=== PATIENT | female | born 1985 | race Caucasian/White ===

== ENCOUNTER 2018-07-11 11:22 | Outpatient (REF) | payer BC, SELFPAY ==
--- NOTE | 2018-07-11 10:30 | PAPFT_PTH ---
PATIENT: Christina Washington LOC: [facility] U#:[id number] AGE/SX: 32/F ROOM: RE07/11/[address]: Starla Jones : 1985 BED: DIS: 07/11/2018 SPEC #: [id number] RECD: 07/11/18 13:05 STATUS: RUFINA RERitika #: [id number] LYNETTE: 07/11/18 10:[address]: Starla Jones DEPT: [facility] Cytology RECD BY: Josefa Wade Tissues: 1 - CX/ENDOCX FOR PAP SMEARS Procedures: PAP THIN PREP/UVM Screening HPV DNA PROBE Comments: [id number] (CHLAMYDIA/GC)
[2018-07-14 14:53] LABS: Chlamydia Result Negative; GC Result Negative; Specimen Description SEE COMMENTS
== END 2018-07-11 11:42 ==
LOC: NCHCN 11:22
PROVIDERS: PCP Nurse Practitioner; Visit Provider Nurse Practitioner
DX: Z11.3 Encounter for screening for infections with a predominantly sexual mode of transmission (principal); Z12.4 Encounter for screening for malignant neoplasm of cervix; Z11.51 Encounter for screening for human papillomavirus (HPV)
CPT/HCPCS: 87491; 87591; 88142; 87624

== ENCOUNTER 2018-08-07 10:20 | Outpatient (REF) | payer BC, SELFPAY ==
[2018-08-07 13:02] LABS: TSH (W/Ref FT4) 1.29 uIU/mL (0.358-3.74)
== END 2018-08-07 10:40 ==
LOC: NCHCN 10:20
PROVIDERS: PCP Nurse Practitioner; Visit Provider Nurse Practitioner
DX: E03.9 Hypothyroidism, unspecified (principal)
CPT/HCPCS: 84443

== ENCOUNTER 2018-11-26 15:07 | Outpatient (REF) | payer OTHER, SELFPAY ==
[2018-11-26 20:27] LABS: ESR 19 MM/HR (0-20)
[2018-11-26 20:46] LABS: C-Reactive Protein 0.31 mg/dL (0.0-0.3); FREE T4 0.88 ng/dL (0.76-1.46)
[2018-11-27 17:59] LABS: T3, Total 94 ng/dl (97-169)
[2018-11-28 09:18] LABS: Thyroglobulin Antibody 56 U/mL (<61); Thyroperoxidase Antibody >1300 U/mL (<61)
[2018-11-28 13:37] LABS: ANA Interpretation Positive (NEGAT); ANA Titer Pattern SEE COMMENTS
[2018-11-28 16:18] LABS: c-ANCA Negative (Negative); p-ANCA Negative (Negative)
== END 2018-11-26 15:27 ==
LOC: NCHCN 15:07
PROVIDERS: PCP Nurse Practitioner; Visit Provider Physician Assistant Medical
DX: R21 Rash and other nonspecific skin eruption (principal)
CPT/HCPCS: 85652; 86376; 84439; 84443; 84480; 86038; 86140; 86255

== ENCOUNTER 2019-03-02 14:55 | Outpatient (REF) | payer OTHER, SELFPAY ==
[2019-03-02 21:51] LABS: FREE T4 1.03 ng/dL (0.76-1.46); TSH 1.18 uIU/mL (0.358-3.74)
[2019-03-03 18:34] LABS: T3, Total 122 ng/dl (97-169)
== END 2019-03-02 15:15 ==
LOC: NCHCN 14:55
PROVIDERS: PCP Nurse Practitioner; Visit Provider Physician Assistant Medical
DX: E03.9 Hypothyroidism, unspecified (principal)
CPT/HCPCS: 84439; 84443; 84480

== ENCOUNTER 2019-06-06 10:15 | Outpatient (CLI) | payer OTHER, SELFPAY ==
[2019-06-06 10:27] LABS: Abs Immature Grans 0.01 k/cumm (0.0-0.09); Absolute Basophil Count 0.05 k/cumm (0.0-0.2); Absolute Eosinophil Count 0.23 k/cumm (0.0-0.7); Absolute Lymphocyte Count 2.11 k/cumm (1.2-3.4); Absolute Monocyte Count 0.49 k/cumm (0.11-0.7); Absolute Neutrophil Count 4.35 k/cumm (1.2-6.7); Basophils % 0.7; Eosinophils % 3.2; HCT 36.7 % (36.0-46.0); HGB 12.1 g/dL (12.0-15.5); Immature Grans % 0.1; Lymphocytes % 29.1; Mean Corpuscular Hemoglobin 28.3 pg (27.0-33.0); Mean Corpuscular Volume 85.9 fL (80-95); Mean Platelet Volume 10.2 fL (8.0-11.0); Monocytes % 6.8; Neutrophils % 60.1; Platelet Count 283 x1000/uL (130-400); RBC 4.27 m/cumm (4.00-5.20); RBC Distribution Width 12.9 % (11.7-14.6); White Blood Cell Count 7.24 k/cumm (4.4-10.8)
== END 2019-06-06 10:35 ==
PROVIDERS: PCP Physician Assistant Medical; Visit Provider Physician Assistant Medical
DX: N92.0 Excessive and frequent menstruation with regular cycle (principal)
CPT/HCPCS: 36415; 85025

== ENCOUNTER 2019-06-09 09:30 | Outpatient (REF) | payer OTHER, SELFPAY ==
[2019-06-09 21:57] LABS: HCG Qual (Serum) Negative
[2019-06-09 22:04] LABS: FREE T4 0.91 ng/dL (0.76-1.46); Glucose 96 mg/dL (70-100); TSH 3.41 uIU/mL (0.36-3.74)
[2019-06-10 18:32] LABS: T3, Total 136 ng/dl (97-169)
[2019-06-10 18:33] LABS: T3, Total 113 ng/dl (97-169)
== END 2019-06-09 09:50 ==
LOC: NCHCN 09:30
PROVIDERS: PCP Physician Assistant Medical; Visit Provider Physician Assistant Medical
DX: E06.3 Autoimmune thyroiditis (principal); N92.0 Excessive and frequent menstruation with regular cycle; R53.83 Other fatigue; Z68.37 Body mass index [BMI] 37.0-37.9, adult
CPT/HCPCS: 82947; 85652; 84439; 84443; 84480; 84703

== ENCOUNTER 2019-06-10 17:44 | Outpatient (REF) | payer OTHER, SELFPAY ==
[2019-06-10 20:45] LABS: ESR 24 mm/hr (0-20)
== END 2019-06-10 18:04 ==
LOC: NCHCN 17:44
PROVIDERS: PCP Physician Assistant Medical; Visit Provider Physician Assistant Medical
DX: E06.3 Autoimmune thyroiditis (principal); N92.0 Excessive and frequent menstruation with regular cycle
CPT/HCPCS: 85652

== ENCOUNTER 2019-07-09 07:45 | Outpatient (CLI) | payer OTHER, SELFPAY ==
[2019-07-09 08:31] LABS: HCT 34.6 % (36.0-46.0); HGB 11.5 g/dL (12.0-15.5); Mean Corp. HGB Concentration 33.2 g/dL (32.0-36.0); Mean Corpuscular Hemoglobin 28.5 pg (27.0-33.0); Mean Corpuscular Volume 85.6 fL (80-95); Platelet Count 295 x1000/uL (130-400); RBC 4.04 m/cumm (4.00-5.20); RBC Distribution Width 12.8 % (11.7-14.6); White Blood Cell Count 6.98 k/cumm (4.4-10.8)
[2019-07-09 16:56] LABS: ALT 17 U/L (14-59); AST 13 U/L (15-37); Albumin 3.8 g/dL (3.4-5.0); Alkaline Phosphatase 85 U/L (46-116); Anion Gap 5.9 mmol/L (3-11); BUN 15 mg/dL (7-18); Bilirubin, Total 0.4 mg/dL (0.2-1.0); CO2 28.1 mmol/L (21.0-32.0); CREATININE 0.85 mg/dL (0.55-1.02); Calcium 8.4 mg/dL (8.5-10.1); Chloride 104 mmol/L (98-107); Glucose 96 mg/dL (70-100); Potassium 4.2 mmol/L (3.5-5.1); Sodium 138 mmol/L (136-145); Total Protein 7.3 g/dL (6.4-8.2)
== END 2019-07-09 08:05 ==
PROVIDERS: PCP Physician Assistant Medical; Visit Provider Internal Medicine Endocrinology, Diabetes & Metabolism
DX: R53.83 Other fatigue (principal); Z68.37 Body mass index [BMI] 37.0-37.9, adult
CPT/HCPCS: 36415; 80053; 82533; 85027; 86140

== ENCOUNTER 2019-07-09 07:57 | Outpatient (REF) | payer OTHER, SELFPAY ==
[2019-07-13 17:37] LABS: Midnight Cortisol <50 ng/dL (<100)
== END 2019-07-09 08:17 ==
LOC: LBN 07:57
PROVIDERS: PCP Physician Assistant Medical; Visit Provider Internal Medicine Endocrinology, Diabetes & Metabolism
DX: R53.83 Other fatigue (principal)
CPT/HCPCS: 82530

== ENCOUNTER 2019-08-18 01:58 | Outpatient (CLI) | payer OTHER, SELFPAY ==
--- NOTE | 2019-08-18 13:03 | NS.NUTBLAN_ITS ---
DESCRIPTION: Christina Washington presents for nutrition consult for obesity and co- morbidity of Jaren seeing endocrinology, poor sleep and depression/anxiety. She is looking for strategies and meal tips. Her is vegetarian. She has a toddler who is eating finger food whom she is concerned about feeding vegetarian meals. She reports a 10 pound weight gain. Christina brings 3 day diet record indicating flavored coffee in AM, eggs or waffle with syrup for breakfast; meat, vegetables, whole grain chips or soup for lunch. Supper is homemade cheese pizza with vegetables, pasta with chickpea and red sauce and vegetables. Christina describes mornings of not having time for breakfast or having plain instant oatmeal. On those days she snacks on sweets, chocolate, or processed food. She takes can of soup, leftovers or salad for lunch. They have pasta 2x/week including mac and cheese and spaghetti with beans and parmesan; chicken 2 x/week. States she is not generally physically active. INTERVENTION: Discussed struggles with cooking 2 meals for each meal; limited financial resources; fatigue at the end of the day that all get in the way of healthy eating. Discussed planning on the weekend for the week; having food available at work if she doesn't get breakfast. Discussed mindful eating and she admits she is a stress eater at times. Focused on hunger/fullness; source of hunger. Reviewed ways to assess quality of food to evaluate if it is worth eating at that moment. Discussed increased physical activity options. PLAN: She will assess hunger/fullness; read labels for non-food ingredients; plan a couple of meals for the week on the weekend including one crock pot meal. She will look for ways to include a quick walk at lunch; get up every 2 hours and move at work and at home. She will call for further follow up. I will send her recipes if available.
== END 2019-08-18 02:18 ==
PROVIDERS: PCP Physician Assistant Medical; Visit Provider Dietitian, Registered
DX: E66.8 Other obesity (principal); E06.3 Autoimmune thyroiditis; Z71.3 Dietary counseling and surveillance
CPT/HCPCS: 97802

== ENCOUNTER → 2019-12-22 18:36 | Outpatient (REF) | payer OTHER, SELFPAY ==
[2019-12-22 22:01] LABS: HCT 36.1 % (36.0-46.0); HGB 11.9 g/dL (12.0-15.5)
[2019-12-22 22:55] LABS: Anion Gap 9.2 mmol/L (3-11); BUN 13 mg/dL (7-18); CO2 27.8 mmol/L (21.0-32.0); CREATININE 0.78 mg/dL (0.55-1.02); Chloride 105 mmol/L (98-107); Glucose 87 mg/dL (74-106); Magnesium 2.4 mg/dL (1.8-2.4); Sodium 142 mmol/L (136-145); TSH (W/Ref FT4) 11.18 uIU/mL (0.36-3.74); Vitamin B12 399 pg/mL (193-986)
[2019-12-22 23:12] LABS: FREE T4 0.68 ng/dL (0.76-1.46)
== END ==
LOC: NCHCN 18:36
PROVIDERS: PCP Physician Assistant Medical; Visit Provider Nurse Practitioner Family
DX: E06.3 Autoimmune thyroiditis (principal); Z86.2 Personal history of diseases of the blood and blood-forming organs and certain disorders involving the immune mechanism; R20.9 Unspecified disturbances of skin sensation; R53.83 Other fatigue; R52 Pain, unspecified
CPT/HCPCS: 80048; 82607; 83735; 84439; 84443; 85014; 85018

== ENCOUNTER 2020-02-09 14:32 | Outpatient (REF) | payer OTHER, SELFPAY ==
[2020-02-09 19:52] LABS: FREE T4 1.13 ng/dL (0.76-1.46); TSH (W/Ref FT4) 0.96 uIU/mL (0.36-3.74)
== END 2020-02-09 14:52 ==
LOC: NCHCN 14:32
PROVIDERS: PCP Physician Assistant Medical; Visit Provider Nurse Practitioner Family
DX: E03.9 Hypothyroidism, unspecified (principal)
CPT/HCPCS: 84439; 84443

== ENCOUNTER 2020-05-04 07:22 | Outpatient (REF) | payer OTHER, SELFPAY ==
[2020-05-04 21:26] LABS: Calculated LDL 91 mg/dL (<100); Cholesterol 159 mg/dL (<200); Glucose 90 mg/dL (74-106); HDL Cholesterol 49 mg/dL (40-60); Triglyceride 96 mg/dL (<150)
== END 2020-05-04 07:42 ==
LOC: NCHCN 07:22
PROVIDERS: PCP Physician Assistant Medical; Visit Provider Nurse Practitioner Family
DX: Z00.00 Encounter for general adult medical examination without abnormal findings (principal)
CPT/HCPCS: 80061; 82947

== ENCOUNTER 2020-05-04 14:10 | Outpatient (CLI) | payer OTHER, SELFPAY ==
--- NOTE | 2020-05-27 08:39 | ZIOP_ITS ---
Date of service: 05/27/20 Time of Service: 08:39 ZIO Patch Manager Of Regulatory Affairs Referring Provider:: Ban Indications:: Palpitations Note: This is a 2-week ZIO patch ordered for indication of palpitations. ?Patient was in normal sinus rhythm for the majority of the recording with an average heart rate of 76 bpm. ?There was one episode of NSVT which lasted 5 beats. ?There were no episodes of supraventricular tachycardia, no pauses greater than 3 seconds, no episodes of atrial fibrillation and no evidence of high degree heart block. ?There were rare isolated supraventricular and ventricular ectopic beats. ?Patient triggered events were associated with sinus rhythm, ectopic beats in the 1 episode of NSVT
== END 2020-05-04 14:30 ==
PROVIDERS: PCP Physician Assistant Medical; Visit Provider Nurse Practitioner Family
DX: R00.2 Palpitations (principal); I47.1 Supraventricular tachycardia

== ENCOUNTER 2020-07-12 08:01 | Outpatient (REF) | payer OTHER, SELFPAY ==
[2020-07-12 20:32] LABS: Iron 39 ug/dL (50-170); Total Iron Binding Capacity 317 ug/dL (250-450); Transferrin Sat 12 % (15-50)
[2020-07-12 20:48] LABS: Ferritin 17 ng/mL (8-252)
[2020-07-14 04:55] LABS: Vitamin D 25 Total 20.2 ng/ml (30-100)
== END 2020-07-12 08:21 ==
LOC: NCHCN 08:01
PROVIDERS: PCP Nurse Practitioner Family; Visit Provider Nurse Practitioner Family
DX: E55.9 Vitamin D deficiency, unspecified (principal); Z86.2 Personal history of diseases of the blood and blood-forming organs and certain disorders involving the immune mechanism
CPT/HCPCS: 82306; 82728; 83540; 83550

== ENCOUNTER 2020-08-29 14:47 | Outpatient (REF) | payer SELFPAY ==
[2020-09-01 08:59] LABS: SARS-CoV-2 RNA Source Nasal/Nares
[2020-09-01 09:00] LABS: SARS-CoV-2 RNA Not Detected (NotDetected)
== END 2020-08-29 15:07 ==
LOC: NCHCN 14:47
PROVIDERS: PCP Nurse Practitioner Family; Visit Provider Nurse Practitioner Family
DX: Z11.59 Encounter for screening for other viral diseases (principal)
CPT/HCPCS: U0003

== ENCOUNTER → 2020-10-19 17:41 | Outpatient (REF) | payer OTHER, SELFPAY ==
[2020-10-19 16:55] LABS: HCT 37.2 % (36.0-46.0); HGB 12.1 g/dL (11.2-15.7); MCH 28.5 pg (27.0-33.0); MCHC 32.5 % (32.0-36.0); MCV 87.5 fL (80-95); MPV 11.5 fL (8.0-11.0); Platelet Count 288 10^3/uL (130-400); RBC 4.25 10^6/uL (3.93-5.22); RDW 13.1 % (11.7-14.6); RDW-SD 41.3 fL; WBC 8.05 10^3/uL (4.4-10.8)
[2020-10-19 17:17] LABS: Ferritin 22 ng/mL (8-252); TSH 5.95 uIU/mL (0.36-3.74)
[2020-10-19 17:44] LABS: FREE T4 0.95 ng/dL (0.76-1.46)
[2020-10-19 19:34] LABS: Iron 46 ug/dL (50-170); Total Iron Binding Capacity 336 ug/dL (250-450); Transferrin Sat 14 % (15-50)
[2020-10-19 21:36] LABS: T3,Free 2.8 pg/mL (2.8-5.3)
[2020-10-19 22:03] LABS: Thyroglobulin Antibody 91 U/mL (<=60)
[2020-10-20 05:06] LABS: Vitamin D 25 Total 21.9 ng/ml (30-100)
== END ==
LOC: NCHCN 17:41
PROVIDERS: PCP Nurse Practitioner Family; Visit Provider Nurse Practitioner Family
DX: E61.1 Iron deficiency (principal); E03.9 Hypothyroidism, unspecified; E55.9 Vitamin D deficiency, unspecified
CPT/HCPCS: 82306; 85027; 82728; 83540; 83550; 84439; 84443; 84481; 86800

== ENCOUNTER 2020-12-12 04:28 | Outpatient (CLI) | payer OTHER, SELFPAY ==
[2020-12-12 09:32] LABS: Calcium 8.8 mg/dL (8.5-10.1); FREE T4 0.39 ng/dL (0.76-1.46); TSH 42.07 uIU/mL (0.36-3.74)
[2020-12-12 16:11] LABS: T3,Free 3.9 pg/mL (2.8-5.3)
[2020-12-12 16:28] LABS: T3, Total 154 ng/dL (97-169)
== END 2020-12-12 04:29 | disposition home or self-care (01) ==
LOC: LBO 04:28
PROVIDERS: PCP Nurse Practitioner Family; Visit Provider Internal Medicine Endocrinology, Diabetes & Metabolism
DX: E03.9 Hypothyroidism, unspecified (principal); E83.51 Hypocalcemia
CPT/HCPCS: 36415; 82310; 84100; 84439; 84443; 84480; 84481; 86376

== ENCOUNTER 2021-02-10 01:34 | Outpatient (CLI) | payer OTHER, SELFPAY ==
--- NOTE | 2021-02-10 14:00 | NS.NUTBLAN_ITS ---
Christina was referred for Medical Nutrition Therapy for weight management. 4' 191 lbs BMI 39. Christina reports 10 lbs wieght gain in last year, up 70 lbs in last 10 years. PMH: Jaren's Dx, anxiety, depression. She sees an presser automatic at [facility]. She reports struggling with her weight since her daughter was born 4 years ago. Her is a vegan, she is an omnivore but tends to eat mostly vegetarian but will on occasion include chicken, milk, cheese, and eggs. Diet recall indicates erratic meal times with poor intakes of protein and reliance on high carbohydrate foods such as pizza, chips and waffles. She also reports binge eating on cakes/sweets when available. Family typically does not have junk foods in home. Christina walks on treadmill in evening for about 10 minutes. She reports good sleep. She reports IBS with constipation. Labs indicate anemia, prescribed iron, MVI and B12- takes on most days. Intervention: Educated Christina on how to follow lower carb, higher protein diet with emphasis on vegetarian and non vegetarian sources of protein. Encouraged eating at regular meal times and limiting carb intake at dinner. Provided meal plans and written material. Suspect increased weight due to high intakes of simple carbs without adequate exercise. Encouraged walking 20 minutes during lunch hour during work week and increased activity during weekend. Follow up meeting scheduled for 03/10/21 at 3 pm
== END 2021-02-10 01:35 | disposition home or self-care (01) ==
LOC: DS 01:34
PROVIDERS: PCP Nurse Practitioner Family; Visit Provider Dietitian, Registered
DX: E66.8 Other obesity (principal); E06.3 Autoimmune thyroiditis; Z68.39 Body mass index [BMI] 39.0-39.9, adult; Z71.3 Dietary counseling and surveillance
CPT/HCPCS: 97802

== ENCOUNTER 2021-03-07 16:55 | Outpatient (REF) | payer OTHER, SELFPAY ==
[2021-03-07 20:45] LABS: Iron 53 ug/dL (50-170); Total Iron Binding Capacity 321 ug/dL (250-450); Transferrin Sat 17 % (15-50)
[2021-03-07 20:54] LABS: TSH 0.27 uIU/mL (0.36-3.74)
[2021-03-07 21:16] LABS: FREE T4 1.29 ng/dL (0.76-1.46)
[2021-03-09 02:55] LABS: Vitamin D 25 Total 22.8 ng/mL (30-100)
== END 2021-03-07 16:56 | disposition home or self-care (01) ==
LOC: NCHCN 16:55
PROVIDERS: PCP Nurse Practitioner Family; Visit Provider Nurse Practitioner Family
DX: E03.9 Hypothyroidism, unspecified (principal); E61.1 Iron deficiency; E55.9 Vitamin D deficiency, unspecified
CPT/HCPCS: 82306; 83540; 83550; 84439; 84443

== ENCOUNTER 2021-03-14 03:28 | Outpatient (CLI) | payer OTHER, SELFPAY ==
--- NOTE | 2021-03-14 12:00 | NS.NUTBLAN_ITS ---
ASSESSMENT: Christina presents for second visit to clarify her needs r/t weight loss. She was seen recently by this dept and wanted to come back for further counseling and a specific plan for weight loss that did not include bariatric surgery as an option. She is currently 183 % IBW and has had hx of trying to lose weight. Noted: she is on thyroid meds and has dx Jaren's disease. Her new thyroid med dose has lowered her TSH significantly. She reports that she no longer takes Fe, B-12, or B-complex. She stated she is now on MVI. 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 Noted: she reports her is a vegan and that she often eats meatless meals and is concerned about her PRO intake. NUTRITION DX: Obesity/overweight r/t excessive caloric intake AEB: 185% IBW, over eating exacerbated by stress, anxiety diagnosis, sedentary lifestyle INTERVENTION: Established a goal of 7% weight loss ( 13 lbs) over 13 weeks with specific k/aaron and CHO intake each day. Caloric intake goal of </= 1931 k/aaron/day and <45g/CHO per meal period. Provided instruction and demo of carbs and cals phone claire to help with counting CHO's and calories. Explained simple and complex CHO's and the role of fiber in the diet. Provided recipe and vid for healthy meal replacement with plant based PRO supp added to help w/ satiety. Gave resources for mindfulness and motivation using materials from Dr. Monty Hutson, Dr. Melvin De La Fuente, and Dr. Larry Kinney. Provided portion sizes for 15g CHO servings of common foods and literature for refrigerator door to help with mindfulness. MONITOR/EVAL: Christina has agreed to arrange for a f/u appointment with this RD in 30 days to evaluate her progress and discuss initiating physical activity into her weight loss program.
== END 2021-03-14 03:29 | disposition home or self-care (01) ==
LOC: DS 03:28
PROVIDERS: PCP Nurse Practitioner Family; Visit Provider Dietitian, Registered
DX: E66.09 Other obesity due to excess calories (principal); E06.3 Autoimmune thyroiditis; F41.1 Generalized anxiety disorder; Z71.3 Dietary counseling and surveillance
CPT/HCPCS: 97803

== ENCOUNTER 2021-05-05 14:53 | Outpatient (REF) | payer OTHER, SELFPAY ==
[2021-05-05 21:20] LABS: Anion Gap 9.1 mmol/L (3-11); BUN 10 mg/dL (7-18); CO2 25.9 mmol/L (21.0-32.0); CREATININE 0.7 mg/dL (0.55-1.02); Calcium 8.7 mg/dL (8.5-10.1); Chloride 106 mmol/L (98-107); FREE T4 1.09 ng/dL (0.76-1.46); Glucose 78 mg/dL (74-106); PHOSPHORUS 3.3 mg/dL (2.6-4.7); Sodium 141 mmol/L (136-145)
[2021-05-07 17:28] LABS: T3,Free 3.5 pg/mL (2.8-5.3)
[2021-05-07 17:42] LABS: T3, Total 119 ng/dL (97-169)
[2021-05-08 05:06] LABS: Vitamin D 25 Total 25.3 ng/mL (30-100)
[2021-05-08 09:32] LABS: Thyroglobulin Antibody 63 U/mL (<=60); Thyroperoxidase Antibody >1300 U/mL (<=60)
== END 2021-05-05 14:54 | disposition home or self-care (01) ==
LOC: NCHCN 14:53
PROVIDERS: PCP Nurse Practitioner Family; Visit Provider Nurse Practitioner Family
DX: E83.51 Hypocalcemia (principal); E06.3 Autoimmune thyroiditis; E03.9 Hypothyroidism, unspecified
CPT/HCPCS: 80048; 82306; 86376; 84100; 84439; 84443; 84480; 84481

== ENCOUNTER 2021-06-13 16:17 | Outpatient (REF) | payer OTHER, SELFPAY ==
[2021-06-15 10:29] LABS: Lyme Ab w Rflx to Lyme Confirm Negative (Negative)
== END 2021-06-13 16:18 | disposition home or self-care (01) ==
LOC: LBN 16:17
PROVIDERS: PCP Nurse Practitioner Family; Visit Provider Family Medicine
DX: R50.9 Fever, unspecified (principal)
CPT/HCPCS: 86618

== ENCOUNTER 2021-08-01 02:36 | Outpatient (CLI) | payer OTHER, SELFPAY ==
[2021-08-01 11:12] LABS: FREE T4 1.45 ng/dL (0.76-1.46); TSH 0.19 uIU/mL (0.36-3.74)
== END 2021-08-01 02:37 | disposition home or self-care (01) ==
LOC: LBO 02:36
PROVIDERS: PCP Nurse Practitioner Family; Visit Provider Internal Medicine
DX: E06.3 Autoimmune thyroiditis (principal)
CPT/HCPCS: 36415; 84439; 84443

== ENCOUNTER 2021-11-08 17:02 | Outpatient (REF) | payer BC, SELFPAY ==
[2021-11-08 20:37] LABS: HCT 37.1 % (36.0-46.0); MCH 27.5 pg (27.0-33.0); MCHC 32.3 % (32.0-36.0); MCV 84.9 fL (80-95); MPV 11.4 fL (8.0-11.0); Platelet Count 303 10^3/uL (130-400); RBC 4.37 10^6/uL (3.93-5.22); RDW 13.3 % (11.7-14.6); RDW-SD 41.2 fL; WBC 9.71 10^3/uL (4.4-10.8)
[2021-11-08 20:40] LABS: ESR 31 mm/hr (0-20)
[2021-11-08 20:52] LABS: Anion Gap 8.1 mmol/L (3-11); BUN 14 mg/dL (7-18); C-Reactive Protein 0.65 mg/dL (0.0-0.3); CO2 27.9 mmol/L (21.0-32.0); CREATININE 0.7 mg/dL (0.55-1.02); Calcium 9.2 mg/dL (8.5-10.1); Chloride 104 mmol/L (98-107); FREE T4 0.99 ng/dL (0.76-1.46); Glucose 68 mg/dL (74-106); Potassium 4.1 mmol/L (3.5-5.1); Sodium 140 mmol/L (136-145); TSH 2.69 uIU/mL (0.36-3.74)
[2021-11-09 00:48] LABS: Vitamin D 25 Total 40.8 ng/mL (30-100)
[2021-11-09 16:53] LABS: Rheumatoid Factor <8.6 IU/mL (<12.0)
[2021-11-10 13:58] LABS: ANA Interpretation Positive (Negative); ANA Titer Pattern 1:80 Speckled
== END 2021-11-08 17:03 | disposition home or self-care (01) ==
LOC: NCHCN 17:02
PROVIDERS: PCP Nurse Practitioner Family; Visit Provider Nurse Practitioner Family
DX: R53.83 Other fatigue (principal); F33.1 Major depressive disorder, recurrent, moderate; E03.9 Hypothyroidism, unspecified; E55.9 Vitamin D deficiency, unspecified; M79.18 Myalgia, other site
CPT/HCPCS: 80048; 82306; 85027; 85652; 84439; 84443; 86038; 86140; 86431

== ENCOUNTER 2022-02-01 02:21 | Outpatient (CLI) | payer BC, SELFPAY | END 2022-02-01 02:22 | disposition home or self-care (01) | LOC: LBO 02:21 | PROVIDERS: PCP Nurse Practitioner Family; Visit Provider Student in an Organized Health Care Education/Training Program ==

== ENCOUNTER 2022-02-06 06:02 | Outpatient (CLI) | payer BC, SELFPAY ==
[2022-02-06 12:15] LABS: FREE T4 1.47 ng/dL (0.76-1.46); TSH 0.23 uIU/mL (0.36-3.74)
== END 2022-02-06 06:03 | disposition home or self-care (01) ==
LOC: LBO 06:02
PROVIDERS: PCP Nurse Practitioner Family; Visit Provider Student in an Organized Health Care Education/Training Program
DX: E03.9 Hypothyroidism, unspecified (principal)
CPT/HCPCS: 36415; 84439; 84443

== ENCOUNTER 2022-04-24 17:06 | Outpatient (REF) | payer BC, SELFPAY ==
[2022-04-24 15:50] LABS: FREE T4 0.99 ng/dL (0.76-1.46); TSH 2.65 uIU/mL (0.36-3.74)
[2022-04-25 17:54] LABS: T3, Total 105 ng/dL (97-169)
== END 2022-04-24 17:07 | disposition home or self-care (01) ==
LOC: NCHCN 17:06
PROVIDERS: PCP Nurse Practitioner Family; Visit Provider Nurse Practitioner Family
DX: E03.9 Hypothyroidism, unspecified (principal)
CPT/HCPCS: 84439; 84443; 84480

== ENCOUNTER 2023-01-15 12:30 | Outpatient (REF) | payer BC, SELFPAY ==
--- NOTE | 2023-01-15 12:00 | PAPFT_PTH ---
PATIENT: Christina Washington LOC: [facility] U#:[id number] AGE/SX: 37/F ROOM: RE01/15/[address]: Rowan Sanders MD : 1985 BED: DIS: 01/15/2023 SPEC #: [id number] RECD: 01/15/23 13:18 STATUS: RUFINA REQ #: [id number] LYNETTE: 01/15/23 12:[address]: Rowan Sanders DEPT: [facility] Cytology RECD BY: Josefa Wade ENTERED: 01/15/23 13:18 SP TYPE: PAPFT OTHR DR: Gricelda Doty Tissues: 1 - CX/ENDOCX FOR PAP SMEARS Procedures: PAP THIN PREP/UVM Screening HPV DNA PROBE Comments: [id number]
== END 2023-01-15 12:31 | disposition home or self-care (01) ==
LOC: LBN 12:30
PROVIDERS: PCP Nurse Practitioner Family; Visit Provider Obstetrics & Gynecology
DX: Z12.4 Encounter for screening for malignant neoplasm of cervix (principal); Z11.51 Encounter for screening for human papillomavirus (HPV)
CPT/HCPCS: 88142; 87624

== ENCOUNTER 2023-06-07 17:59 | Outpatient (REF) | payer BC, SELFPAY ==
[2023-06-07 15:35] LABS: HCT 37.1 % (36.0-46.0); HGB 12.5 g/dL (11.2-15.7); MCH 28.7 pg (27.0-33.0); MCHC 33.7 % (32.0-36.0); MCV 85 fL (80-95); MPV 11.3 fL (8.0-11.0); Platelet Count 286 10^3/uL (130-400); RBC 4.35 10^6/uL (3.93-5.22); RDW 12.7 % (11.7-14.6); RDW-SD 39.7 fL; WBC 7.68 10^3/uL (4.4-10.8)
[2023-06-07 16:06] LABS: Iron 60 ug/dL (50-170); Total Iron Binding Capacity 325 ug/dL (250-450); Transferrin Sat 18 % (15-50)
[2023-06-07 16:26] LABS: ALT 16 U/L (14-59); AST 11 U/L (15-37); Albumin 4.2 g/dL (3.4-5.0); Alkaline Phosphatase 62 U/L (46-116); Anion Gap 8.2 mmol/L (3-11); BUN 13 mg/dL (7-18); Bilirubin, Total 0.6 mg/dL (0.2-1.0); CO2 28.8 mmol/L (21.0-32.0); CREATININE 0.9 mg/dL (0.55-1.02); Calcium 9.2 mg/dL (8.5-10.1); Calculated LDL 121 mg/dL (<100); Chloride 102 mmol/L (98-107); Cholesterol 194 mg/dL (<200); Glucose 84 mg/dL (74-106); HDL Cholesterol 53 mg/dL (40-60); Potassium 4.2 mmol/L (3.5-5.1); Sodium 139 mmol/L (136-145); TSH (W/Ref FT4) 21.09 uIU/mL (0.36-3.74); Total Protein 7.7 g/dL (6.4-8.2); Triglyceride 104 mg/dL (<150); Vitamin B12 295 pg/mL (193-986)
[2023-06-07 16:40] LABS: Hemoglobin A1C 5.1 % (<5.7)
[2023-06-07 17:00] LABS: FREE T4 0.92 ng/dL (0.76-1.46)
[2023-06-07 20:41] LABS: Vitamin D 25 Total 24.3 ng/mL (30-100)
== END 2023-06-07 18:00 | disposition home or self-care (01) ==
LOC: NCHCN 17:59
PROVIDERS: PCP Nurse Practitioner Family; Visit Provider Nurse Practitioner Family
DX: Z00.00 Encounter for general adult medical examination without abnormal findings (principal); E03.9 Hypothyroidism, unspecified; G62.9 Polyneuropathy, unspecified; Z13.1 Encounter for screening for diabetes mellitus; Z13.220 Encounter for screening for lipoid disorders; Z13.228 Encounter for screening for other metabolic disorders; E55.9 Vitamin D deficiency, unspecified; E61.1 Iron deficiency
CPT/HCPCS: 80053; 80061; 82306; 85027; 82607; 83036; 83540; 83550; 84439; 84443

== ENCOUNTER 2023-07-25 01:16 | Outpatient (CLI) | payer BC, SELFPAY ==
[2023-07-25 10:18] LABS: TSH (W/Ref FT4) 0.67 uIU/mL (0.36-3.74)
== END 2023-07-25 01:17 | disposition home or self-care (01) ==
LOC: LBO 01:16
PROVIDERS: PCP Nurse Practitioner Family; Visit Provider Nurse Practitioner Family
DX: E03.9 Hypothyroidism, unspecified (principal)
CPT/HCPCS: 36415; 84443

== ENCOUNTER 2024-07-28 02:24 | Outpatient (CLI) | payer BC, SELFPAY ==
[2024-07-28 08:40] LABS: FREE T4 1.46 ng/dL (0.76-1.46)
[2024-07-28 08:44] LABS: TSH 0.27 uIU/mL (0.36-3.74)
[2024-07-28 09:01] LABS: Calculated LDL 72 mg/dL (<100); Cholesterol 147 mg/dL (<200); HDL Cholesterol 51 mg/dL (40-60); Triglyceride 121 mg/dL (<150)
== END 2024-07-28 02:25 | disposition home or self-care (01) ==
LOC: LBO 02:24
PROVIDERS: Absent Provider Nurse Practitioner Family; PCP Nurse Practitioner Family; Referring Provider Nurse Practitioner Family; Visit Provider Nurse Practitioner Family
DX: E03.9 Hypothyroidism, unspecified (principal); Z00.00 Encounter for general adult medical examination without abnormal findings
CPT/HCPCS: 36415; 80061; 84439; 84443

== ENCOUNTER 2024-08-14 02:01 | Outpatient (CLI) | payer BC, SELFPAY ==
[2024-08-14 10:18] LABS: HCT 37.9 % (36.0-46.0); HGB 12.5 g/dL (11.2-15.7); MCH 28.5 pg (27.0-33.0); MCV 86 fL (80-95); MPV 10.4 fL (8.0-11.0); Platelet Count 316 10^3/uL (130-400); RBC 4.39 10^6/uL (3.93-5.22); RDW 12.4 % (11.7-14.6); RDW-SD 39.1 fL; WBC 6.17 10^3/uL (4.4-10.8)
[2024-08-14 11:09] LABS: ALT 12 U/L (14-59); AST 12 U/L (15-37); Albumin 4.1 g/dL (3.4-5.0); Alkaline Phosphatase 74 U/L (46-116); BUN 18 mg/dL (7-18); Bilirubin, Total 0.61 mg/dL (0.2-1.0); CREATININE 0.9 mg/dL (0.55-1.02); Calcium 9.6 mg/dL (8.5-10.1); Chloride 106 mmol/L (98-107); Estimated GFR 84.97 (mL/min/1.73m2); Glucose 86 mg/dL (74-106); Magnesium 2.1 mg/dL (1.8-2.4); Potassium 3.7 mmol/L (3.5-5.1); Sodium 143 mmol/L (136-145); Total Protein 8.3 g/dL (6.4-8.2)
[2024-08-14 15:05] LABS: ESR 10 mm/hr (0-20)
[2024-08-14 15:22] LABS: C-Reactive Protein < 0.50 mg/dL (<or=0.5)
[2024-08-14 15:44] LABS: Ferritin 20 ng/mL (8-252)
== END 2024-08-14 02:02 | disposition home or self-care (01) ==
PROVIDERS: PCP Nurse Practitioner Family; Referring Provider Nurse Practitioner Family; Visit Provider Nurse Practitioner Family
DX: R00.2 Palpitations (principal); E06.3 Autoimmune thyroiditis; R06.02 Shortness of breath; R42 Dizziness and giddiness; R00.0 Tachycardia, unspecified; F41.9 Anxiety disorder, unspecified
CPT/HCPCS: 36415; 80053; 85027; 85652; 82728; 83735; 86140

== ENCOUNTER 2024-08-14 11:15 | Outpatient (CLI) | payer BC, SELFPAY ==
--- NOTE | 2024-08-14 11:15 | RT.EKG_ITS ---
APPROVED REPORT Exam: Resting ECG Reason for Exam: SOB, dizziness, racing heart Patient Location: O HR:87 bpm ECG Measurements Heart Rate 87 AXIS AK 133 P 23 QRSd 88 QRS 41 QT 348 T -1 QTc 419 Conclusion Sinus rhythm...normal P axis, V-rate 50- 99 Borderline T wave abnormalities...T/QRS ratio < 1/20 or flat T
== END 2024-08-14 11:16 | disposition home or self-care (01) ==
LOC: DI.KIM 11:16
PROVIDERS: PCP Nurse Practitioner Family; Visit Provider Nurse Practitioner Family
DX: R06.02 Shortness of breath (principal); R42 Dizziness and giddiness; R00.0 Tachycardia, unspecified
CPT/HCPCS: 93010

== ENCOUNTER 2024-08-22 20:30 | Emergency (ER) | payer BC, SELFPAY ==
[2024-08-22] VITALS (17 sets, daily range): BP systolic 123–165; BP diastolic 62–78; PULSE 89–135; RESP 13–26; TEMP 36.2–37.1; O2SAT 100
--- NOTE | 2024-08-22 20:30 | RT.EKG_ITS ---
APPROVED REPORT Exam: Resting ECG Reason for Exam: C/P Patient Location: E HR:128 bpm ECG Measurements Heart Rate 128 AXIS CA [id number] P [id number] QRSd 85 QRS 46 QT 292 T -68 QTc 427 Conclusion Atrial fibrillation...V-rate 123-132, irreg A-activity Nonspecific T abnormalities, inferior leads...T <-0.10mV, II III aVF sinus tach
--- NOTE | 2024-08-22 20:45 | DI.RAD_ITS ---
Exam(s) XR CHEST 2V PA LATERAL EXAM: XR CHEST 2V PA LATERAL CLINICAL HISTORY: CP, SOB, anxiety TECHNIQUE: 2D digital imaging was performed of the chest. Two images were obtained. PA and lateral views were obtained. COMPARISON: No exams were available for comparison FINDINGS: MEDIASTINUM: Normal. HEART: Normal. PULMONARY VASCULATURE: Normal. LUNGS: Clear. PLEURAL SPACE: No pleural effusion or pneumothorax. BONE:Within normal limits for the patient's age. OTHER FINDINGS:Normal. IMPRESSION: No acute pulmonary findings. DATA REPOSITORY: RADIATION DOSE DELIVERED:
--- NOTE | 2024-08-22 20:45 | W.ED.GENAD ---
Discharge Plan Disposition Patient Disposition: Home Condition: Good Discharge Details Clinical Impression: Shortness of breath Primary Care Provider: Erum Cevallos ED Provider: Mamta Amaya Home Meds and New Rx's Prescriptions: Continued levothyroxine 125 mcg tablet 125 mcg PO DAILY Qty: 30 3RF Discharge Instructions Additional Instructions: Please call [facility] internal medicine first thing Saturday morning to schedule follow-up appointment. Your cardiac workup today was reassuring. Your symptoms resolved after receiving antianxiety medication. There were no acute abnormalities in blood work or EKG. Return to emergency care if you develop new chest pains, difficulty breathing, episodes of passing out, or if you are very worried and need to be rechecked again immediately Referrals: Erum Cevallos APRN [Primary Care Provider] - HPI General Date/Time Provider Initiated Documentation: 08/22/24 20:32. HPI Narrative: Christina is a 38year old female who presents to the emergency department today for evaluation of left-sided chest pain. She reports that since she had her thyroid medications changed from name brand to generic she has had intermittant left-sided chest pain that radiates up into her left shoulder/arm that comes and goes, this is accompanied by shortness of breath and feeling of fatigue. She has been experiencing consistent palpitations as well, saw her PCP and has blood work and Holter monitor pending. She denies recent fever/chills, episodes of passing out, congestion, sore throat, cough, nausea/vomiting, change in p.o. intake, change in bowel or bladder function, pedal edema. Past medical history is significant for anxiety, OCD, hypothyroidism. She has had elevated blood pressure in the past, but this was determined to be whitecoat hypertension as her blood pressure was normal at home. She does have a significant family cardiac disease. No history of connective tissue disorders, hormone use, recent surgery/immobility/trauma, calf swelling/redness/pain, hemoptysis, history of blood clots, diabetes, or smoking. Physical exam reassuring. Patient does appear anxious. She has mild tenderness with palpation of left anterior chest wall. Easy work of breathing, lung sounds clear bilaterally. Normal heart sounds, tachycardia noted. Peripheral pulses intact. No JVD or pedal edema. Abdomen is soft, nondistended, nontender to palpation. D/dx includes but is not limited to: Anxiety, GERD, muscle spasm, cardiac arrhythmia, thyroid dysfunction, ACS less likely. PERC negative after lorazepam. I independently interpreted the following tests: EKG reassuring, sinus tachycrdia with rate 128, no changes c/w acute ischemia. CBC, CMP, troponin, TSH all reassuring. As troponin is less than 4, no repeat indicated. Chest x-ray unremarkable, no obvious infiltrates or cardiomegaly noted. Repeat EKG performed at 2151, normal sinus rhythm with rate 99, no changes consistent with ischemia. While in the emergency department, Christina received lorazepam for anxiety and famotidine for gastritis. After receiving lorazepam, Christina's heart rate decreased to the 90s and she reported that her shortness of breath and chest pain fully resolved. I did discuss with her elevated heart rate today, she says that she has had a history of elevated heart rate and has had to stop wearing her smart watch due to this because she would get nervous when she saw her heart rate jump up into the 110s to 120s with only light walking. She says that it has been elevated in the past. Overall workup today reassuring. Unclear etiology of shortness of breath with chest discomfort, however this may be related to ongoing palpitations that are being worked up. Reviewed discharge instructions with patient, including red flags indicate need for return to emergency care. Recommend follow-up with PCP for Holter monitor and additional workup as needed. Related Data Home Medications ?Medication ?Instructions ?Recorded ?Confirmed levothyroxine 125 mcg tablet 125 mcg PO DAILY #30 tabs 08/14/24 08/22/24 Previous Rx's ?Medication ?Instructions ?Recorded levothyroxine 125 mcg tablet 125 mcg PO DAILY #30 tabs 08/14/24 Allergies Allergy/AdvReac Type Severity Reaction Status Date / Time No Known Allergies Allergy Verified 08/22/24 20:37 General Stated Complaint: Chest Pain GOYO: 2 Review of Systems Narrative: see HPI Exam Const General: cooperative, healthy appearing, comfortable, well developed, well groomed and anxious Nutritional Appearance: average body habitus Orientation: alert and oriented x3 Neck Neck: normal visual inspection and full ROM Chest Chest: normal inspection of the chest and tenderness (L anterior chest wall) Resp Effort & Inspection: normal respiratory effort and able to speak in complete sentences Auscultation: clear to auscultation bilaterally Cardio Rate: tachycardic Rhythm: regular rhythm Pulses: radial pulses present GI Inspection: normal to inspection Palpation: soft and nontender Extrem General: normal to inspection, full ROM, no pedal edema and no calf tenderness Course Vital Signs Vital signs: Vital Signs Temperature 36.2 C L 08/22/24 20:33 Pulse 135 H 08/22/24 20:33 Respiratory Rate 20 08/22/24 20:33 Blood Pressure 165/76 H 08/22/24 20:33 Pulse Oximetry 100 08/22/24 20:33 Temperature 36.2 C L 08/22/24 20:33 Pulse 135 H 08/22/24 20:33 Respiratory Rate 18 08/22/24 20:37 Respiratory Effort Non-Labored, Short of Breath 08/22/24 20:37 Respiratory Depth Normal 08/22/24 20:37 Respiratory Pattern Normal 08/22/24 20:37 Blood Pressure 165/76 H 08/22/24 20:33 Pulse Oximetry 100 08/22/24 20:33 Pain Level 0 08/22/24 20:33 Medical Decision Making Quality:SDOH Health Related Social Needs: No Data to Display PFSH All Active Problems (Updated 08/22/24 @ 21:51 by Mamta Masters) Shortness of breath (Acute) Elevated blood pressure reading without diagnosis of hypertension (Acute) Palpitations (Acute) Right shoulder pain (Acute) Non-cardiac chest pain (Acute) Skin sensation disturbance (Acute) Ventricular tachycardia (Chronic) Polyneuropathy (Acute) Developmental academic disorder (Acute) OCD (obsessive compulsive disorder) (Acute) Phobic disorder (Acute) Goiter (Acute) Anxiety (Chronic) Major depressive disorder, recurrent episode, moderate (Acute) Hypothyroidism (Chronic) Medical History (Updated 08/22/24 @ 21:51 by Mamta Masters) H/O iron deficiency anemia Tonsillar calculus Ear itching Fatigue Sensory disturbance Vertigo Jaren's thyroiditis Obesity History of anemia Vitamin D deficiency Ventricular tachycardia, nonsustained Iron deficiency Scapulalgia Constipation Dry skin Hypocalcemia Premenstrual symptom Myalgia Learning difficulty Dermatitis of both ear canals PTSD (post-traumatic stress disorder) Per Patient: Dx High School Generalized anxiety disorder Per Patient: Dx high school Surgical History (Updated 03/07/22 @ 08:30 by Jayshree Becker RN) Hx of section Family History (Updated 06/26/24 @ 16:22 by Yoli eHrnandez) Mother Alcohol use disorder Depression Father , suddenly at 66 from massive heart attack Anxiety Heart disease Hypertension Depression Heart murmur Other Jaren's thyroiditis Hyperlipidemia Osteoporosis Stroke Social History (Updated 06/26/24 @ 16:19 by Yoli Hernandez) Smoking/Tobacco Use Status: Never Second Hand Exposure: Yes (As a child) Smoking risk assessment performed?: Yes Alcohol Intake: current Alcohol Intake frequency: holidays/special occasions only Drug use: Never Adopted: No Caregiver/Support person: No Foster care: Yes Household members: spouse and children Housing: house Number of Children: 1 Communication Needs: None Education Level: college Do you need help understanding health information?: Never current occupation: works at [employer] in [employer] [employer] [facility] Pets and animals: Yes (2 Cats, 1 Dog) Pets and animals: cat(s) and dog(s) Sexually active: Yes Do you think of yourself as: straight/heterosexual Current gender identity: female What is your relationship status?: How often do you talk on the phone with friends or family?: never How often do you get together with friends or relatives?: never Do you belong to any clubs or organized social groups?: no Panel score (0-1 are the most socially isolated patients): 1 What type of physical activity do you participate in: walking Duration: 15-30 minutes/day Frequency: 1-2 times per week Special maira needs: No Seatbelt use: always Helmet use: Yes Drive intox or ride w/intox ambulance driver paramedic: No Female Reproductive History Menstrual Age of Menarche: 15 Duration of menses: 6-7 days control method: condoms History History 1 Para Hx # Term Pregnancies 1 Multiple births Hx # Pregnancies Ectopic pregnancies AB induced Hx Number of Living Children AB spontaneous Past Pregnancies Del. Date GA/Weeks # Preg Succ Route Wgt Sex Labor Lgth Anesthesia Location Prov [facility] 02/07/17 40 Yes 3855.535 g Female [facility] [place] Delivery Date: 02/07/17 Last Updated by: Olya Negrete C- section for failure to progess.
[2024-08-22] MEDS: LORazepam 0.5 MG TAB PO (20:51)
[2024-08-22 20:52] LABS: Abs Immature Grans 0.04 10^3/uL (0.0-0.06); Absolute Basophil Count 0.06 10^3/uL (0.0-0.2); Absolute Eosinophil Count 0.18 10^3/uL (0.0-0.7); Absolute Lymphocyte Count 2.92 10^3/uL (1.2-3.4); Absolute Monocyte Count 0.72 10^3/uL (0.1-0.8); Basophils % 0.6 %; Eosinophils % 1.8 %; HCT 37.3 % (36.0-46.0); HGB 12.4 g/dL (11.2-15.7); Immature Grans % 0.4 %; Lymphocytes % 29.4 %; MCH 28.6 pg (27.0-33.0); MCHC 33.2 % (32.0-36.0); MCV 86 fL (80-95); MPV 10.4 fL (8.0-11.0); Monocytes % 7.3 %; Neutrophils % 60.5 %; Platelet Count 298 10^3/uL (130-400); RBC 4.33 10^6/uL (3.93-5.22); RDW 12.2 % (11.7-14.6); RDW-SD 38.5 fL; WBC 9.92 10^3/uL (4.4-10.8)
[2024-08-22] MEDS: Famotidine 20 MG/2 ML VIAL IVP (20:52)
[2024-08-22 21:17] LABS: ALT 14 U/L (14-59); AST 11 U/L (15-37); Albumin 4.1 g/dL (3.4-5.0); Alkaline Phosphatase 87 U/L (46-116); Anion Gap 9.5 mmol/L (3-11); BUN 14 mg/dL (7-18); Bilirubin, Total 0.36 mg/dL (0.2-1.0); CO2 27.5 mmol/L (21.0-32.0); CREATININE 0.8 mg/dL (0.55-1.02); Calcium 9.2 mg/dL (8.5-10.1); Chloride 107 mmol/L (98-107); Estimated GFR 97.87 (mL/min/1.73m2); Glucose 105 mg/dL (74-106); Magnesium 2.1 mg/dL (1.8-2.4); Potassium 3.9 mmol/L (3.5-5.1); Sodium 144 mmol/L (136-145); TSH (W/Ref FT4) 1.15 uIU/mL (0.36-3.74); Total Protein 8.1 g/dL (6.4-8.2)
[2024-08-22 21:18] LABS: Troponin I < 4 ng/L (<or=51)
--- NOTE | 2024-08-22 21:45 | RT.EKG_ITS ---
APPROVED REPORT Exam: Resting ECG Reason for Exam: C/P Patient Location: E HR:99 bpm ECG Measurements Heart Rate 99 AXIS MN 140 P 32 QRSd 85 QRS 37 QT 327 T -8 QTc 421 Conclusion Sinus rhythm...normal P axis, V-rate 60- 99
--- NOTE | 2024-08-22 22:48 | DI.VRAD_ITS ---
PROCEDURE INFORMATION: Exam: XR Chest Exam date and time: 08/22/2024 9:32 PM Age: 38 years old Clinical indication: Shortness of breath and other: Chest pain, anxiety, SOB TECHNIQUE: Imaging protocol: Radiologic exam of the chest. Views: 2 views. COMPARISON: No relevant prior studies available. FINDINGS: Lungs: Unremarkable. No consolidation. Pleural spaces: Unremarkable. No pleural effusion. No pneumothorax. Heart/Mediastinum: Unremarkable. No cardiomegaly. Bones/joints: Unremarkable. IMPRESSION: No acute findings. Dictated and Authenticated by: Amy Bolden MD. Ordering:SANDER Oleary MD
== END 2024-08-22 22:06 | disposition home or self-care (01) ==
PROVIDERS: Emergency Provider Nurse Practitioner Family; PCP Nurse Practitioner Family
DX: R06.02 Shortness of breath (principal); R07.89 Other chest pain; R03.0 Elevated blood-pressure reading, without diagnosis of hypertension; R00.2 Palpitations; Z86.59 Personal history of other mental and behavioral disorders; Z86.39 Personal history of other endocrine, nutritional and metabolic disease
CPT/HCPCS: 80053; 81025; 93005; 96374; 99284; 71046; 83735; 84443; 84484; 85025; 93010

== ENCOUNTER 2024-08-28 12:41 | Outpatient (CLI) | payer BC, SELFPAY ==
--- NOTE | 2024-08-28 12:30 | RT.EKG_ITS ---
APPROVED REPORT Exam: Resting ECG Reason for Exam: baseline Patient Location: O HR:110 bpm ECG Measurements Heart Rate 110 AXIS WV 162 P 43 QRSd 84 QRS 61 QT 309 T -30 QTc 419 Conclusion Sinus tachycardia...rate> 99 Borderline T abnormalities, ..T flat/neg, II III aVF
== END 2024-08-28 12:42 | disposition home or self-care (01) ==
LOC: DI.CARD 12:41
PROVIDERS: PCP Nurse Practitioner Family; Visit Provider Internal Medicine Cardiovascular Disease
DX: R00.2 Palpitations (principal)
CPT/HCPCS: 93010

== ENCOUNTER 2024-08-30 08:00 | Emergency (ER) | payer BC, SELFPAY ==
[2024-08-30] VITALS (7 sets, daily range): BP systolic 112–138; BP diastolic 60–88; PULSE 89–128; RESP 13–21; TEMP 37.1; O2SAT 99–100
--- NOTE | 2024-08-30 08:00 | RT.EKG_ITS ---
APPROVED REPORT Exam: Resting ECG Reason for Exam: Tachycardia Patient Location: E HR:116 bpm ECG Measurements Heart Rate 116 AXIS DC 134 P 61 QRSd 88 QRS 72 QT 308 T -40 QTc 429 Conclusion Sinus tachycardia...rate> 99
[2024-08-30 09:27] LABS: TSH (W/Ref FT4) 1.22 uIU/mL (0.36-3.74)
--- NOTE | 2024-08-30 09:29 | ED.GENADUL_ITS ---
Discharge Plan Disposition Patient Disposition: Home Discharge Details Clinical Impression: Palpitation Primary Care Provider: Erum Cevallos ED Provider: Josefa Hudson Home Meds and New Rx's Prescriptions: New propranolol 10 mg tablet 5 - 10 mg PO TID Qty: 15 0RF Rx Instructions: may take 5-10 mg prn anxiety/elevated HR Continued levothyroxine 125 mcg tablet 125 mcg PO DAILY Qty: 30 3RF Patient Comments: using generic since Oct hydroxyzine HCl 10 mg tablet 10 mg PO TID PRN (Reason: anxiety) Qty: 20 1RF Discharge Instructions Instructions: Palpitations Additional Instructions: Take the propranolol every 8 hours as needed for palpitations or anxiety Follow-up with Dr. Lala regarding continued beta-debi therapy Follow-up with primary care physician in 1 to 2 days for reassessment perhaps have a discussion regarding her thyroid medication additionally Your tests today are reasonable Follow-up regarding your Holter monitor Return earlier should you have new or worsening complaints Referrals: Myrna Lala MD [ [facility] STAFF PHYSICIAN] - Erum Cevallos APRN [Primary Care Provider] - Discharge Data Discharge Date/Time-TO BE ENTERED AT DEPARTURE: 08/30/24 10:24 HPI General Date/Time Provider Initiated Documentation: 08/30/24 08:03 . HPI Narrative: This 38-year-old female presents with report of recurrent tachycardia, heart rate on patient's watch was 160 prior to arrival. She states that this woke her from sleep. She states she felt warm and an internal tremulousness. She states that she has been evaluated several times in the past month for this. She most recently saw cardiology 2 days prior to arrival and they reviewed beta-blockers but she did not initiate 1. The only medication she is on is her thyroid medication she has reportedly taken thyroid medication since she was 18 years old. Was recently changed to a generic formulation and she is wondering if this is contributing to her symptoms. She denies significant chest pain history of recent flights, surgeries, long drives, history of coagulopathy or family history of coagulopathy. She denies any exogenous hormones. She has not exercised since she started having the symptoms out of concern for worsening symptomology. Denies chance of . Denies illicit drug use and has not had any caffeine for 2 weeks. She denies any significant change in her symptoms, similar to prior. She did have a Holter monitor recently this was done the levels were in her usual hospital per patient. Related Data Home Medications ?Medication ?Instructions ?Recorded ?Confirmed levothyroxine 125 mcg tablet 125 mcg PO DAILY #30 tabs 08/14/24 08/30/24 hydroxyzine HCl 10 mg tablet 10 mg PO TID PRN anxiety #20 tabs 08/26/24 08/30/24 propranolol 10 mg tablet 5 - 10 mg (0.5 - 1 x 10 mg) PO TID 08/30/24 #15 tabs Previous Rx's ?Medication ?Instructions ?Recorded levothyroxine 125 mcg tablet 125 mcg PO DAILY #30 tabs 08/14/24 hydroxyzine HCl 10 mg tablet 10 mg PO TID PRN anxiety #20 tabs 08/26/24 propranolol 10 mg tablet 5 - 10 mg (0.5 - 1 x 10 mg) PO TID 08/30/24 #15 tabs Allergies Allergy/AdvReac Type Severity Reaction Status Date / Time No Known Allergies Allergy Verified 08/30/24 08:06 General Stated Complaint: Arrhythmia GOYO: 3 Exam Narrative Exam Narrative: Alert and oriented, no acute distress, sinus tachycardia, pupils equal round reactive to light accommodation, no murmurs or rubs, lungs clear to auscultation, no peripheral edema Course Vital Signs Vital signs: Vital Signs Temperature 37.1 C 08/30/24 08:06 Pulse 128 H 08/30/24 08:06 Respiratory Rate 14 08/30/24 08:06 Blood Pressure 138/77 08/30/24 08:06 Pulse Oximetry 100 08/30/24 08:06 Temperature 37.1 C 08/30/24 08:06 Temperature Source Temporal Artery Scan 08/30/24 08:06 Pulse 104 H 08/30/24 08:49 Respiratory Rate 21 08/30/24 08:49 Respiratory Effort Normal, Non-Labored 08/30/24 08:08 Blood Pressure 116/88 08/30/24 08:49 Blood Pressure Position Sitting 08/30/24 08:06 Pulse Oximetry 100 08/30/24 08:49 Oxygen Delivery Method Room Air 08/30/24 08:49 Oxygen Flow Rate 0 08/30/24 08:49 Pain Level 0 08/30/24 08:49 Medical Decision Making 38-year-old female in no acute distress, sinus tachycardia noted on EKG. I did consider pulmonary embolism however patient has not on any exogenous hormones and is not hypoxic nor tachypneic. She test outwardly appear to be having panic attack. I did review Dr. Lala cardiology's note and PCPs documentation regarding this patient and will try 5 to 10 mg of propranolol and see if it helps at all with her tachycardia and symptoms. I was unfortunately unable to review her Holter monitor from [facility], she is encouraged to discuss this with her primary care physician. Her troponin and TSH are all within normal limits I think patient stable for discharge home. She is in no acute distress and her tachycardia has improved dramatically. She is given low threshold to return should she have new or worsening complaints. I did review patient's 2 prior visits to this facility in addition to Dr. Lala's cardiology note requiring approximately 5 to 10 minutes of time. Quality:SDOH Health Related Social Needs: No Data to Display PFSH All Active Problems (Updated 08/30/24 @ 10:06 by LANDEN Oliva) Palpitation (Acute) Elevated blood pressure reading without diagnosis of hypertension (Acute) Right shoulder pain (Acute) Non-cardiac chest pain (Acute) Skin sensation disturbance (Acute) Polyneuropathy (Acute) Developmental academic disorder (Acute) OCD (obsessive compulsive disorder) (Acute) Phobic disorder (Acute) Goiter (Acute) Anxiety (Chronic) Major depressive disorder, recurrent episode, moderate (Acute) Hypothyroidism (Chronic) Medical History (Updated 08/30/24 @ 10:06 by LANDEN Oliva) Palpitations H/O iron deficiency anemia Tonsillar calculus Ear itching Fatigue Sensory disturbance Vertigo Jaren's thyroiditis Obesity History of anemia Vitamin D deficiency Iron deficiency Scapulalgia Constipation Dry skin Hypocalcemia Premenstrual symptom Myalgia Learning difficulty Dermatitis of both ear canals PTSD (post-traumatic stress disorder) Per Patient: Dx High School Generalized anxiety disorder Per Patient: Dx high school Surgical History Hx of section Family History Mother Alcohol use disorder Depression Father , suddenly at 66 from massive heart attack Anxiety Heart disease Hypertension Depression Heart murmur Other Jaren's thyroiditis Hyperlipidemia Osteoporosis Stroke Social History Smoking/Tobacco Use Status: Never Second Hand Exposure: Yes (As a child) Smoking risk assessment performed?: Yes Alcohol Intake: current Alcohol Intake frequency: holidays/special occasions only Drug use: Never Adopted: No Caregiver/Support person: No Foster care: Yes Household members: spouse and children Housing: house Number of Children: 1 Communication Needs: None Education Level: college Do you need help understanding health information?: Never current occupation: works at [employer] in [employer] Pets and animals: Yes (2 Cats, 1 Dog) Pets and animals: cat(s) and dog(s) Sexually active: Yes Do you think of yourself as: straight/heterosexual Current gender identity: female What is your relationship status?: How often do you talk on the phone with friends or family?: never How often do you get together with friends or relatives?: never Do you belong to any clubs or organized social groups?: no Panel score (0-1 are the most socially isolated patients): 1 What type of physical activity do you participate in: walking Duration: 15-30 minutes/day Frequency: 1-2 times per week Special maira needs: No Seatbelt use: always Helmet use: Yes Drive intox or ride w/intox rivet driver: No Female Reproductive History Menstrual Age of Menarche: 15 Duration of menses: 6-7 days control method: condoms History History 1 Para Hx # Term Pregnancies 1 Multiple births Hx # Pregnancies Ectopic pregnancies AB induced Hx Number of Living Children AB spontaneous Past Pregnancies Del. Date GA/Weeks # Preg Succ Route Wgt Sex Labor Lgth Anesth esia Location [facility] 02/07/17 40 Yes 3855.535 g Female N [facility] [place] Delivery Date: 02/07/17 Last Updated by: Olya Negrete C- section for failure to progess.
[2024-08-30] MEDS: Propranolol 10 MG TAB 5 MG PO (09:35)
[2024-08-30 09:36] LABS: Calcium 9.1 mg/dL (8.5-10.1); Glucose 126 mg/dL (74-106); Troponin I < 4 ng/L (<or=51)
[2024-08-30 09:37] LABS: Anion Gap 8.7 mmol/L (3-11); BUN 12 mg/dL (7-18); CO2 26.3 mmol/L (21.0-32.0); CREATININE 0.8 mg/dL (0.55-1.02); Chloride 106 mmol/L (98-107); Estimated GFR 97.87 (mL/min/1.73m2); Potassium 3.8 mmol/L (3.5-5.1); Sodium 141 mmol/L (136-145)
== END 2024-08-30 10:24 | disposition home or self-care (01) ==
PROVIDERS: Emergency Provider Physician Assistant; PCP Nurse Practitioner Family
DX: R00.2 Palpitations (principal); F41.9 Anxiety disorder, unspecified; E06.3 Autoimmune thyroiditis
CPT/HCPCS: 36415; 80048; 93005; 99284; 83735; 84443; 84481; 84484; 93010; 99283

== ENCOUNTER 2024-08-31 09:03 | Outpatient (CLI) | payer BC, SELFPAY ==
[2024-08-31 09:59] LABS: TSH (W/Ref FT4) 0.68 uIU/mL (0.36-3.74)
[2024-09-02 17:11] LABS: Metanephrine, Free <0.20 nmol/L (<0.50); Normetanephrine, Free 0.23 nmol/L (<0.90)
== END 2024-08-31 09:04 | disposition home or self-care (01) ==
LOC: LBO 09:04
PROVIDERS: PCP Nurse Practitioner Family; Visit Provider Nurse Practitioner Family
DX: E03.9 Hypothyroidism, unspecified (principal); R00.2 Palpitations
CPT/HCPCS: 36415; 83835; 84443

== ENCOUNTER 2024-09-13 08:06 | Emergency (ER) | payer BC, SELFPAY ==
[2024-09-13 08:08] VITALS: BP 179/78; PULSE 128; RESP 16; TEMP 36.8; O2SAT 99
[2024-09-13 08:18] VITALS: RESP 16
--- NOTE | 2024-09-13 08:27 | W.ED.GENAD ---
Discharge Plan Disposition Patient Disposition: Home Condition: Stable Discharge Details Clinical Impression: Nausea Primary Care Provider: Unknown,Unknown ED Provider: Kelly Sparks Home Meds and New Rx's Prescriptions: No Action levothyroxine 125 mcg tablet 125 mcg PO DAILY Qty: 30 3RF Patient Comments: using generic since Jul hydroxyzine HCl 10 mg tablet 10 mg PO TID PRN (Reason: anxiety) Qty: 20 1RF Discharge Instructions Instructions: Nausea and Vomiting, Adult ED Additional Instructions: No evidence of infection noted on the labs today. No evidence of urinary tract infection. Electrolytes are all within normal limits. Please increase oral fluids over the next 3 to 4 days. Follow up with primary care provider in 3-5 days. Return to ED sooner if any worsening fever, vomiting, abdominal pain or concerns. You may try taking [id number] Maalox or Tums or similar for the reflux type symptoms. Thank you for allowing us to care for you today. Referrals: Primary Care Provider [Outside] - 5 days HPI General Mode of arrival: ambulatory. Date/Time Provider Initiated Documentation: 09/13/24 08:10. Limitations to Documentation: no limitations. Information obtained by: patient, RN notes reviewed and old records reviewed. HPI Narrative: 38-year-old with multiple complaints she reports increased anxiety. Nausea yellow stools and reported fever 100.9 prior to arrival. Patient has been seen here couple of weeks ago for palpitations she does have a history of Jaren's thyroiditis, obesity, iron deficiency anemia PTSD and anxiety disorder. She denies any cough ear pain/sore throat. She reports that she is anxious about vomiting and that there is something wrong with her. She also reports some decreased appetite and weight loss. She is alert oriented x 4 speaking in full sentences lungs are clear to auscultation abdomen is soft nontender with palpation. Related Data Home Medications ?Medication ?Instructions ?Recorded ?Confirmed levothyroxine 125 mcg tablet 125 mcg PO DAILY #30 tabs 08/14/24 09/13/24 hydroxyzine HCl 10 mg tablet 10 mg PO TID PRN anxiety #20 tabs 08/26/24 09/13/24 Previous Rx's ?Medication ?Instructions ?Recorded levothyroxine 125 mcg tablet 125 mcg PO DAILY #30 tabs 08/14/24 hydroxyzine HCl 10 mg tablet 10 mg PO TID PRN anxiety #20 tabs 08/26/24 Allergies Allergy/AdvReac Type Severity Reaction Status Date / Time No Known Allergies Allergy Verified 09/13/24 08:17 General Stated Complaint: GenMedical GOYO: 3 Review of Systems All systems reviewed & are unremarkable except as noted in HPI and below Constitutional Constitutional: Reports as per HPI, Reports fever(s), Reports poor appetite and Reports weight loss Gastrointestinal Gastrointestinal: Denies abdominal pain and Reports nausea Exam Narrative Exam Narrative: Constitutional: Alert and oriented x3. Appears stated age. Normal body habitus. Patient appears anxious. Head: Normocephalic, no trauma. Eyes: Pupils PERRL, Red reflex noted, EOM's intact. Eyelids symmetrical without lesions, discharge, or swelling. ENT: Bilateral TM's WNL, External ear normal to inspection, no mastoid TTP, swelling, or erythema, Nasal turbinates WNL, no nasal discharge. Normal dentition, Posterior pharynx WNL, no exudate. Chest: RRR, Normal S1, S2, distal pulses intact. Resp: Lungs clear to auscultation bilaterally, no wheezes, rales, or rhonchi. Abdomen: Soft, non-distended, Normoactive bowel sounds all 4 quads. Musculoskeletal: Normal gait, Moves all 4 extremities without difficulty. Skin: No suspicious rashes or lesions. Capillary refill less than 2 sec. Neurologic: Cranial nerves II-XII intact. Alert and oriented x 3. Motor: No deficits noted. Sensory: Intact bilaterally all 4 extremities. Hematologic/Lymphatic: No ecchymosis, no lymphadenopathy. Course Vital Signs Vital signs: Vital Signs Temperature 36.8 C 09/13/24 08:08 Pulse 128 H 09/13/24 08:08 Respiratory Rate 16 09/13/24 08:08 Blood Pressure 179/78 H 09/13/24 08:08 Pulse Oximetry 99 09/13/24 08:08 Temperature 36.8 C 09/13/24 08:08 Temperature Source Oral 09/13/24 08:08 Pulse 128 H 09/13/24 08:08 Respiratory Rate 16 09/13/24 08:18 Respiratory Effort Normal, Non-Labored 09/13/24 08:18 Respiratory Depth Normal 09/13/24 08:18 Respiratory Pattern Normal 09/13/24 08:18 Blood Pressure 179/78 H 09/13/24 08:08 Blood Pressure Position Sitting 09/13/24 08:08 Pulse Oximetry 99 09/13/24 08:08 Oxygen Delivery Method Room Air 09/13/24 08:08 Oxygen Flow Rate 0 09/13/24 08:08 Lab/Test Results Lab/Test Results: Laboratory Tests Range/Units 09/13/24 09/13/24 08:15 08:16 VBG Lactate Cancelled COVID-19 Source Cancelled SARS-CoV-2 (PCR) Cancelled Influenza Type A (PCR) Cancelled Influenza Type B (PCR) Cancelled RSV (PCR) Cancelled Medical Decision Making 38-year-old with multiple complaints she reports increased anxiety. Nausea yellow stools and reported fever 100.9 prior to arrival. Patient has been seen here couple of weeks ago for palpitations she does have a history of Jaren's thyroiditis, obesity, iron deficiency anemia PTSD and anxiety disorder. She denies any cough ear pain/sore throat. She reports that she is anxious about vomiting and that there is something wrong with her. She al I did offer antiemetic and lorazepam 0.5 mg patient is concerned about taking this on an empty stomach. Reassurance given. Patient also states that she was recently started on Lexapro and then stopped it and restarted it and stopped it again. Differential diagnosis includes but not limited to gastroenteritis, GERD, dyspepsia, anxiety, viral illness, dehydration. Labs are largely unremarkable, she does have trace ketones 30 protein trace blood and moderate bilirubin in her urine, culture is not indicated at this time no leukocytes or nitrites. No leukocytosis, patient reports no change after the medications. She did receive Zofran 4 mg and this helped. This time I will have her follow-up with her PCP increase oral fluids. Will send patient home with 3 tablets of ODT Zofran. Patient to be discharged home will order outpatient stool studies patient is requesting to add on a TSH to her labs however she did just have a level done 2 weeks ago which is within normal limits however patient states that she has changed her medications since then. All her questions were answered to the best my ability. TSH slightly elevated or 0.11, T41.1, instruct her to follow-up with PCP regarding this. Patient discharged in hemodynamically stable condition. All her questions were answered to the best my ability. This text was generated using Nuance dictation system, please disregard any oddities of phrase or misspellings. Medical Records Medical records reviewed: Yes I reviewed the patient's medical records. Lab Data Lab results reviewed: Yes I reviewed the patient's lab results. Labs: Laboratory Tests Range/Units 09/13/24 09/13/24 09/13/24 08:15 08:16 08:45 WBC (4.4-10.8) 10^3/uL 6.98 RBC (3.93-5.22) 10^6/uL 4.41 Hgb (11.2-15.7) g/dL 12.4 Hct (36.0-46.0) % 38.4 MCV (80-95) fL 87 MCH (27.0-33.0) pg 28.1 MCHC (32.0-36.0) % 32.3 RDW (11.7-14.6) % 12.6 Plt Count (130-400) 10^3/uL 305 MPV (8.0-11.0) fL 10.1 Immature Gran % % 0.3 Neutrophils % % 68.2 Lymphocytes % % 21.3 Monocytes % % 8.6 Eosinophils % % 0.9 Basophils % % 0.7 Nucleated RBC % (0.0-0.3) % 0.0 Absolute Neutrophils (1.2-6.7) 10^3/uL 4.76 Absolute Lymphocytes (1.2-3.4) 10^3/uL 1.49 Absolute Monocytes (0.1-0.8) 10^3/uL 0.60 Absolute Eosinophils (0.0-0.7) 10^3/uL 0.06 Absolute Basophils (0.0-0.2) 10^3/uL 0.05 VBG Lactate Cancelled Sodium (136-145) mmol/L 143 Potassium (3.5-5.1) mmol/L 3.6 Chloride (98-107) mmol/L 105 Carbon Dioxide (21.0-32.0) mmol/L 28.1 Anion Gap (3-11) mmol/L 9.9 BUN (7-18) mg/dL 11 Creatinine (0.55-1.02) mg/dL 1.0 Est GFR (CKD-EPI 2020) (mL/min/1.73m2) 74.88 Glucose (74-106) mg/dL 104 Calcium (8.5-10.1) mg/dL 8.9 Magnesium (1.8-2.4) mg/dL 2.0 Total Bilirubin (0.2-1.0) mg/dL 0.86 AST (15-37) U/L 12 L ALT (14-59) U/L 14 Alkaline Phosphatase (46-116) U/L 76 Total Protein (6.4-8.2) g/dL 7.8 Albumin (3.4-5.0) g/dL 4.1 Lipase (<78) U/L 28 Urine Color (Yellow) Urine Clarity (Clear) Urine pH (5-8) Ur Specific [place] (1.005-1.025) Urine Protein (Neg-Trace) mg/dL Urine Ketones (Negative) mg/dL Urine Blood (Negative) Urine Nitrite (Negative) Urine Bilirubin (Negative) Urine Urobilinogen (Up to 0.2) mg/dL Ur Leukocyte Esterase (Negative) Urine RBC (0-2) HPF Urine WBC (0-5) HPF Ur Epithelial Cells (Negative) HPF Urine Crystals (Negative) HPF Urine Bacteria (Negative) HPF Urine Casts (Negative) LPF Urine Mucus (Negative) Ur Culture Indicated? Urine Glucose (Negative) mg/dL COVID-19 Source Cancelled SARS-CoV-2 (PCR) Cancelled Influenza Type A (PCR) Cancelled Influenza Type B (PCR) Cancelled RSV (PCR) Cancelled Range/Units 09/13/24 08:52 WBC (4.4-10.8) 10^3/uL RBC (3.93-5.22) 10^6/uL Hgb (11.2-15.7) g/dL Hct (36.0-46.0) % MCV (80-95) fL MCH (27.0-33.0) pg MCHC (32.0-36.0) % RDW (11.7-14.6) % Plt Count (130-400) 10^3/uL MPV (8.0-11.0) fL Immature Gran % % Neutrophils % % Lymphocytes % % Monocytes % % Eosinophils % % Basophils % % Nucleated RBC % (0.0-0.3) % Absolute Neutrophils (1.2-6.7) 10^3/uL Absolute Lymphocytes (1.2-3.4) 10^3/uL Absolute Monocytes (0.1-0.8) 10^3/uL Absolute Eosinophils (0.0-0.7) 10^3/uL Absolute Basophils (0.0-0.2) 10^3/uL VBG Lactate Sodium (136-145) mmol/L Potassium (3.5-5.1) mmol/L Chloride (98-107) mmol/L Carbon Dioxide (21.0-32.0) mmol/L Anion Gap (3-11) mmol/L BUN (7-18) mg/dL Creatinine (0.55-1.02) mg/dL Est GFR (CKD-EPI 2020) (mL/min/1.73m2) Glucose (74-106) mg/dL Calcium (8.5-10.1) mg/dL Magnesium (1.8-2.4) mg/dL Total Bilirubin (0.2-1.0) mg/dL AST (15-37) U/L ALT (14-59) U/L Alkaline Phosphatase (46-116) U/L Total Protein (6.4-8.2) g/dL Albumin (3.4-5.0) g/dL Lipase (<78) U/L Urine Color (Yellow) Yellow Urine Clarity (Clear) Sl Cloudy Urine pH (5-8) 5.5 Ur Specific [place] (1.005-1.025) >= 1.030 H Urine Protein (Neg-Trace) mg/dL 30 H Urine Ketones (Negative) mg/dL Trace H Urine Blood (Negative) Trace-intact H Urine Nitrite (Negative) Negative Urine Bilirubin (Negative) Moderate H Urine Urobilinogen (Up to 0.2) mg/dL 0.2 Ur Leukocyte Esterase (Negative) Negative Urine RBC (0-2) HPF 0-2 Urine WBC (0-5) HPF 0-2 Ur Epithelial Cells (Negative) HPF Many Urine Crystals (Negative) HPF Rare Calcium Oxalate Urine Bacteria (Negative) HPF Moderate Urine Casts (Negative) LPF Negative Urine Mucus (Negative) Moderate Ur Culture Indicated? No Urine Glucose (Negative) mg/dL Negative COVID-19 Source SARS-CoV-2 (PCR) Influenza Type A (PCR) Influenza Type B (PCR) RSV (PCR) Quality:SDOH Health Related Social Needs: No Data to Display PFSH All Active Problems (Updated 09/13/24 @ 09:39 by Kelly Sparks NP) Nausea (Acute) Palpitation (Acute) Elevated blood pressure reading without diagnosis of hypertension (Acute) Right shoulder pain (Acute) Non-cardiac chest pain (Acute) Skin sensation disturbance (Acute) Polyneuropathy (Acute) Developmental academic disorder (Acute) OCD (obsessive compulsive disorder) (Acute) Phobic disorder (Acute) Goiter (Acute) Anxiety (Chronic) Major depressive disorder, recurrent episode, moderate (Acute) Hypothyroidism (Chronic) Medical History Palpitations H/O iron deficiency anemia Tonsillar calculus Ear itching Fatigue Sensory disturbance Vertigo Jaren's thyroiditis Obesity History of anemia Vitamin D deficiency Iron deficiency Scapulalgia Constipation Dry skin Hypocalcemia Premenstrual symptom Myalgia Learning difficulty Dermatitis of both ear canals PTSD (post-traumatic stress disorder) Per Patient: Dx High School Generalized anxiety disorder Per Patient: Dx high school Surgical History Hx of section Family History Mother Alcohol use disorder Depression Father , suddenly at 66 from massive heart attack Anxiety Heart disease Hypertension Depression Heart murmur Other Jaren's thyroiditis Hyperlipidemia Osteoporosis Stroke Social History Smoking/Tobacco Use Status: Never Second Hand Exposure: Yes (As a child) Smoking risk assessment performed?: Yes Alcohol Intake: current Alcohol Intake frequency: holidays/special occasions only Drug use: Never Adopted: No Caregiver/Support person: No Foster care: Yes Household members: spouse and children Housing: house Number of Children: 1 Communication Needs: None Education Level: college Do you need help understanding health information?: Never current occupation: works at [employer] in [employer] Pets and animals: Yes (2 Cats, 1 Dog) Pets and animals: cat(s) and dog(s) Sexually active: Yes Do you think of yourself as: straight/heterosexual Current gender identity: female What is your relationship status?: How often do you talk on the phone with friends or family?: never How often do you get together with friends or relatives?: never Do you belong to any clubs or organized social groups?: no Panel score (0-1 are the most socially isolated patients): 1 What type of physical activity do you participate in: walking Duration: 15-30 minutes/day Frequency: 1-2 times per week Special maira needs: No Seatbelt use: always Helmet use: Yes Drive intox or ride w/intox wagon driver: No Do you feel safe at home: Yes Do you feel safe in your relationship?: Yes Female Reproductive History Menstrual Age of Menarche: 15 Duration of menses: 6-7 days control method: condoms History History 1 Para Hx # Term Pregnancies 1 Multiple births Hx # Pregnancies Ectopic pregnancies AB induced Hx Number of Living Children AB spontaneous Past Pregnancies Del. Date GA/Weeks # Preg Succ Route Wgt Sex Labor Lgth Anesthesia Location [facility] 02/07/17 40 Yes 3855.535 g Female [facility] Delivery Date: 02/07/17 Last Updated by: Olya Negrete C- section for failure to progess.
[2024-09-13] MEDS: Ondansetron O.D.T. 4 MG TABEF PO (08:34)
[2024-09-13 09:05] LABS: Abs Immature Grans 0.02 10^3/uL (0.0-0.06); Absolute Basophil Count 0.05 10^3/uL (0.0-0.2); Absolute Eosinophil Count 0.06 10^3/uL (0.0-0.7); Absolute Lymphocyte Count 1.49 10^3/uL (1.2-3.4); Absolute Neutrophil Count 4.76 10^3/uL (1.2-6.7); Basophils % 0.7 %; Eosinophils % 0.9 %; HCT 38.4 % (36.0-46.0); HGB 12.4 g/dL (11.2-15.7); Immature Grans % 0.3 %; Lymphocytes % 21.3 %; MCH 28.1 pg (27.0-33.0); MCHC 32.3 % (32.0-36.0); MCV 87 fL (80-95); MPV 10.1 fL (8.0-11.0); Monocytes % 8.6 %; Neutrophils % 68.2 %; Platelet Count 305 10^3/uL (130-400); RBC 4.41 10^6/uL (3.93-5.22); RDW 12.6 % (11.7-14.6); RDW-SD 39.9 fL; WBC 6.98 10^3/uL (4.4-10.8)
[2024-09-13] MEDS: LORazepam 0.5 MG TAB PO (09:06)
[2024-09-13 09:08] LABS: Bilirubin Moderate (Negative); Blood Trace-intact (Negative); Clarity Sl Cloudy (Clear); Glucose Negative (Negative); Ketones Trace mg/dL (Negative); Leukocyte Esterase Negative (Negative); Nitrite Negative (Negative); Specific Gravity >= 1.030 (1.005-1.025); Urobilinogen 0.2 mg/dL (Up to 0.2); pH 5.5 (5-8)
[2024-09-13 09:15] LABS: ALT 14 U/L (14-59); AST 12 U/L (15-37); Albumin 4.1 g/dL (3.4-5.0); Alkaline Phosphatase 76 U/L (46-116); Anion Gap 9.9 mmol/L (3-11); BUN 11 mg/dL (7-18); Bilirubin, Total 0.86 mg/dL (0.2-1.0); CO2 28.1 mmol/L (21.0-32.0); Calcium 8.9 mg/dL (8.5-10.1); Chloride 105 mmol/L (98-107); Estimated GFR 74.88 (mL/min/1.73m2); Glucose 104 mg/dL (74-106); Lipase 28 U/L (<78); Potassium 3.6 mmol/L (3.5-5.1); Sodium 143 mmol/L (136-145); Total Protein 7.8 g/dL (6.4-8.2)
[2024-09-13 09:18] LABS: Bacteria Moderate HPF (Negative); C & S Indicated? No; Casts Negative LPF (Negative); Crystals Rare Calcium Oxalate HPF (Negative); Epithelial Cells Many HPF (Negative); Mucus Moderate (Negative); RBC 0-2 HPF (0-2); WBC 0-2 HPF (0-5)
[2024-09-13 09:59] LABS: Lab Add On Test DONE
[2024-09-13 10:12] VITALS: BP 127/81; PULSE 100; RESP 16; TEMP 36.8; O2SAT 100
[2024-09-13 10:19] LABS: TSH (W/Ref FT4) 4.11 uIU/mL (0.36-3.74)
[2024-09-13] MEDS: Ondansetron O.D.T. 4 MG TABEF, 3 TABS/BTL PO (10:33)
[2024-09-13 10:43] LABS: FREE T4 1.51 ng/dL (0.76-1.46)
== END 2024-09-13 09:39 | disposition home or self-care (01) ==
PROVIDERS: Emergency Provider Registered Nurse Emergency
DX: R11.0 Nausea (principal); R03.0 Elevated blood-pressure reading, without diagnosis of hypertension; F41.9 Anxiety disorder, unspecified; E06.3 Autoimmune thyroiditis; F43.10 Post-traumatic stress disorder, unspecified; D50.9 Iron deficiency anemia, unspecified
CPT/HCPCS: 36415; 80053; 81025; 83690; 87040; 87637; 99283; 81003; 81015; 83605; 83735; 84439; 84443; 85025; 99284

== ENCOUNTER 2024-09-14 15:59 | Outpatient (REF) | payer BC, SELFPAY ==
[2024-09-14 23:08] LABS: Campylobacter PCR Negative (Negative); Salmonella PCR Negative (Negative); Shiga Toxin PCR Negative (Negative); Shigella/Enteroinvasive Ecoli Negative (Negative)
== END 2024-09-14 16:00 | disposition home or self-care (01) ==
LOC: LBN 15:59
PROVIDERS: Referring Provider Nurse Practitioner Family; Visit Provider Registered Nurse Emergency
DX: R19.7 Diarrhea, unspecified (principal)
CPT/HCPCS: 87505; 83630; 87177

== ENCOUNTER 2024-09-18 13:44 | Outpatient (REF) | payer BC, SELFPAY ==
[2024-09-18 14:53] LABS: Bilirubin Negative (Negative); Blood Negative (Negative); Clarity Clear (Clear); Glucose Negative (Negative); Ketones Negative (Negative); Leukocyte Esterase Small (Negative); Nitrite Negative (Negative); Specific Gravity 1.015 (1.005-1.025); Urobilinogen 0.2 mg/dL (Up to 0.2)
[2024-09-18 15:03] LABS: Hemoglobin A1C 5.3 % (<5.7)
[2024-09-18 15:09] LABS: Iron 35 ug/dL (50-170); Total Iron Binding Capacity 333 ug/dL (250-450); Transferrin Sat 11 % (15-50)
[2024-09-18 15:21] LABS: Bacteria Moderate HPF (Negative); C & S Indicated? No/Sq. Contamination; Casts Negative LPF (Negative); Crystals Negative HPF (Negative); Epithelial Cells Many HPF (Negative); Mucus Negative (Negative); Other Cells Negative (Negative); RBC Negative HPF (0-2)
[2024-09-18 15:32] LABS: Ferritin 12 ng/mL (8-252); Folate 12.9 ng/mL (8.6-20.0); Vitamin B12 304 pg/mL (193-986); Vitamin D 25 Total 23.2 ng/mL (30-100)
== END 2024-09-18 13:45 | disposition home or self-care (01) ==
LOC: NCHCN 13:44
PROVIDERS: PCP Nurse Practitioner Family; Visit Provider Nurse Practitioner Family
DX: R82.2 Biliuria (principal)
CPT/HCPCS: 82306; 81003; 81015; 82607; 82728; 82746; 83036; 83540; 83550

== ENCOUNTER 2024-09-30 14:59 | Emergency (ER) | payer BC, SELFPAY ==
[2024-09-30 15:01] VITALS: BP 158/93; PULSE 127; RESP 16; TEMP 36.7; O2SAT 98
--- NOTE | 2024-09-30 15:15 | DI.CT_ITS ---
Exam(s) CT ABDOMEN PELVIS W EXAM: CT ABDOMEN PELVIS W CLINICAL HISTORY: LLQ pain and BRBPR. TECHNIQUE: Imaging Protocol: Axial computed tomography images with coronal and sagittal reformatted images were created and reviewed CONTRAST MATERIAL: Intravenous: Omnipaque-350 100cc Oral: None COMPARISON: No exams were available for comparison FINDINGS: VISUALIZED LUNG BASES: No nodules nor pleural effusions evident. ABDOMEN: There is no ascites. LIVER: There are no focal hepatic lesions evident. No dilated intrahepatic ducts. GALLBLADDER/BILIARY: No obvious gallbladder pathology. CBD is not dilated. PANCREAS: No evidence of pancreatic mass nor dilatation of the pancreatic duct. SPLEEN: Spleen is not enlarged. No obvious intrasplenic lesions. Splenic and portal veins are paten t. ADRENALS: There are no significant adrenal masses. KIDNEYS:z there is a small benign cortical cyst in the posterior cortex of the right kidney measuring 1 cm. No further workup of this finding recommended. There are no other focal findings in the kidn eys. No solid lesions. No calculi. No hydronephrosis nor hydroureter nor obvious abnormality in th e urinary bladder.. ABDOMINAL AORTA: Abdominal aorta is not enlarged. LYMPH NODES:There is no retroperitoneal nor paraaortic adenopathy. ABDOMINAL WALL: No evidence of significant anterior abdominal wall nor inguinal hernia. GI: There is no evidence of bowel obstruction, free air, nor abscess. No obvious colitis pattern, gi seamus the history here. PELVIS: GI: No evidence of appendicitis.Redundant sigmoid. There may be a single diverticulum in the sigmoid adjacent to the fundus of the uterus. There appears to be an adjacent fibroid in the left side of t he fundus of the uterus which measures approximately 1.5 x 1.5 cm LYMPH NODES: There is no intrapelvic nor inguinal adenopathy. REPRODUCTIVE: Uterus and adnexal regions appear unremarkable. There is a tiny amount of fluid in the cul-de-sac. Probably female physiologic. There is a uterine fibroid in the left side of the fundus which measures approximately 1.5 x 1.5 cm no abnormal adnexal masses. URINARY BLADDER: No calculi nor obvious masses evident OSSEOUS: No fractures and no significant osseous lesions. IMPRESSION: 1. No evidence of appendicitis. 2. There is a 1.5 x 1.5 cm finding in the left side of the uterine fundus which is probably a fibroid . There is a tiny amount of fluid in the cul-de-sac which is probably female physiologic. There are no obvious abnormal adnexal masses. 3. Possible few diverticuli in the sigmoid. No evidence of obvious acute diverticulitis. 4. Correlation with blood work recommended. RADIATION DOSE DELIVERED: 557.31mGy.cm Total DLP DATA REPOSITORY: All CT scans at this facility are submitted to the National Radiology Data Registry (NRDR) Dose Index Registry (DIR) with the [employer] (ACR). RADIATION OPTIMIZATION: All CT scans at this facility use at least one of these dose optimization te chniques: automated exposure control; mA and/or kV adjustment per patient size (includes targeted exa ms where dose is matched to clinical indication); or iterative reconstruction.
--- NOTE | 2024-09-30 15:23 | W.ED.GENAD ---
Discharge Plan Disposition Patient Disposition: Home Condition: Good Discharge Details Clinical Impression: Lesion of uterus, Acute GI bleeding, Hemorrhoid Primary Care Provider: Gricelda Doty ED Provider: Tres Shah Home Meds and New Rx's Prescriptions: New omeprazole 20 mg capsule,delayed release(DR/EC) 20 mg PO BID Qty: 60 0RF No Action levothyroxine 125 mcg tablet 125 mcg PO DAILY Qty: 30 3RF Patient Comments: using generic since Jul hydroxyzine HCl 10 mg tablet 10 mg PO TID PRN (Reason: anxiety) Qty: 20 1RF Discharge Instructions Instructions: Uterine fibroids, GI bleed Additional Instructions: At this time your blood work shows a reassuring hemoglobin level, normal coagulation studies, normal electrolytes and renal function. Normal pancreatic function and normal thyroid function. There is no evidence of infection in your urine. Your CAT scan does not show any evidence of active bleeding, diverticulitis, or other significant life-threatening etiology. There is no evidence of cancer noted on your CAT scan. You do have a lesion in your uterus, which is likely a uterine fibroid. Please follow-up with your obstetrics exercise physiologist for further nonemergent outpatient ultrasounding. Additionally we have placed a referral with our surgery group, they will contact you for an outpatient colonoscopy and potential EGD. Please stick with mild and bland diet for the next few weeks. Please take the omeprazole as prescribed to help with any stomach irritation. If you notice any worsening of your symptoms, or any new symptoms such as vomiting, diarrhea, fever, chills, shortness of breath, chest pain, numbness, weakness, or fainting , please return immediately to the emergency department for reevaluation. Please follow up with your primary care provider as soon as possible for reassessment and reevaluation. As always, it was a pleasure participating in your medical care today. Referrals: Gricelda Doty [Primary Care Provider] - [facility] General Date/Time Provider Initiated Documentation: 09/30/24 15:02. HPI Narrative: This is a pleasant 38-year-old female with a past medical history of Jaren's thyroiditis and currently hypothyroidism, OCD, polyneuropathy, phobic disorder, anxiety, who presents today for evaluation of left lower quadrant abdominal pain. Patient states that for the last few weeks she has had somewhat chronic left upper quadrant abdominal achiness. She recently had an ultrasound of that area which was unremarkable. Over the last 24 hours she has noted to transition to the left lower quadrant tenderness. Today while having a bowel movement she noticed a small amount of blood dripping. She did start her period today, but the blood had been coming rectally and vaginally. After cleaning that area, and waiting about 10 to 15 minutes she went and checked again and it was still demonstrating some blood. She denies any rectal pain with a bowel movement. She denies any fever or chills. She does admit to left lower quadrant crampiness. No particular aggravating or relieving factors. No headache. No vomiting or hematemesis. No personal or family history of celiac disease, ulcerative colitis, or Crohn's disease. Family history is positive for colon cancer in a grandparent at an older age. Related Data Home Medications ?Medication ?Instructions ?Recorded ?Confirmed levothyroxine 125 mcg tablet 125 mcg PO DAILY #30 tabs 08/14/24 09/30/24 hydroxyzine HCl 10 mg tablet 10 mg PO TID PRN anxiety #20 tabs 08/26/24 09/30/24 omeprazole 20 mg capsule,delayed 20 mg PO BID #60 caps 09/30/24 release Previous Rx's ?Medication ?Instructions ?Recorded levothyroxine 125 mcg tablet 125 mcg PO DAILY #30 tabs 08/14/24 hydroxyzine HCl 10 mg tablet 10 mg PO TID PRN anxiety #20 tabs 08/26/24 omeprazole 20 mg capsule,delayed 20 mg PO BID #60 caps 09/30/24 release Allergies Allergy/AdvReac Type Severity Reaction Status Date / Time No Known Allergies Allergy Verified 09/30/24 15:07 General Stated Complaint: [employer]Medical GOYO: 4 Review of Systems All systems reviewed & are unremarkable except as noted in HPI and below Exam Narrative Exam Narrative: 1.Const: Well-nourished, Well-developed, appearing stated age 2.Eyes: PERRL, no conjunctival injection, and symmetrical lids. 3.ENT: Atraumatic external nose and ears. Moist MM. Neck: Symmetric, trachea midline, No thyromegaly. 4.CVS: +S1/S2, Peripheral pulses 2+ and equal in all extremities. Brisk capillary refill in all extremities. 5.RESP: Unlabored respiratory effort. Clear to auscultation bilaterally. No wheezes rales or rhonchi 6.GI: Soft, nondistended, no guarding or rebound. Mild left lower quadrant achiness on palpation. Rectal exam demonstrates no large hemorrhoids. No active anal bleeding. 7.MSK: Normocephalic/Atraumatic, Extremities w/o deformity or ttp No cyanosis or clubbing, Normal movement of all extremities 8.Skin: Warm, Dry. No rashes or lesions. 9.Neuro: customer agent II-XII grossly intact. Sensation grossly intact, no focal neurologic deficits. 10.Psych: (AAO) x3. Appropriate mood and affect Course Vital Signs Vital signs: Vital Signs Temperature 36.7 C 09/30/24 15:01 Pulse 127 H 09/30/24 15:01 Respiratory Rate 16 09/30/24 15:01 Blood Pressure 158/93 H 09/30/24 15:01 Pulse Oximetry 98 09/30/24 15:01 Temperature 36.7 C 09/30/24 15:01 Temperature Source Oral 09/30/24 15:01 Pulse 127 H 09/30/24 15:01 Respiratory Rate 16 09/30/24 15:01 Blood Pressure 158/93 H 09/30/24 15:01 Blood Pressure Position Sitting 09/30/24 15:01 Pulse Oximetry 98 09/30/24 15:01 Oxygen Delivery Method Room Air 09/30/24 15:01 Oxygen Flow Rate 0 09/30/24 15:01 Pain Level 0 09/30/24 15:01 Medical Decision Making This is a pleasant 38-year-old female with a past medical history of Jaren's thyroiditis and currently hypothyroidism, OCD, polyneuropathy, phobic disorder, anxiety, who presents today for evaluation of left lower quadrant abdominal pain. Patient states that for the last few weeks she has had somewhat chronic left upper quadrant abdominal achiness. She recently had an ultrasound of that area which was unremarkable. Over the last 24 hours she has noted to transition to the left lower quadrant tenderness. Today while having a bowel movement she noticed a small amount of blood dripping. She did start her period today, but the blood had been coming rectally and vaginally. After cleaning that area, and waiting about 10 to 15 minutes she went and checked again and it was still demonstrating some blood. She denies any rectal pain with a bowel movement. She denies any fever or chills. She does admit to left lower quadrant crampiness. No particular aggravating or relieving factors. No headache. No vomiting or hematemesis. No personal or family history of celiac disease, ulcerative colitis, or Crohn's disease. Family history is positive for colon cancer in a grandparent at an older age. Exam demonstrates well-appearing female. Mild achiness in the left lower quadrant. No guarding or rebound to suggest an acute surgical abdomen. Rectal exam shows no signs of active bleeding or large hemorrhoid. Differential includes internal hemorrhoid, diverticulitis, less likely ulcerative colitis or Crohn's. Bleeding diatheses unlikely. We will evaluate for these concerning etiologies, monitor closely and reassess. Will get CT imaging to rule out acute intra-abdominal process. 5:16 PM Laboratory workup has returned normal, no white count bandemia or left shift, hemoglobin and coagulation profile is normal. Electrolytes normal, renal function excellent, lipase normal, thyroid function normal, urinalysis shows no evidence of infection. CT scan shows evidence of 1.5 x 1.5 cm left sided uterine fundus lesion which is likely a fibroid, no evidence of diverticulitis or active bleeding. Repeat exam shows nonsurgical abdomen. Patient is still extremely nervous. She is concerned about her symptomatology, which I completely understand. Patient did have a very small hemorrhoid noted on rectal exam which could have been potential causes of symptoms, diverticular bleed less likely. With no evidence of diverticulitis, obstruction, tumor mass or other abnormality, I do not see an indication for further emergent workup at this time. With her hemoglobin levels notably benign, and no evidence of hypotension or shock, I do feel that continued outpatient management is reasonable. That being said the patient's self-reported anxiety remains. We spent about 15 to 20 minutes discussing the pathology, the next steps with outpatient nonemergent colonoscopy and ultrasound, dietary changes, and concerning red flags for which she should return. Patient understands and feels very reassured. I have extensively reviewed the treatment plan and discharge instructions with the patient. I have addressed all patient concerns at this time. The patient was made aware of what symptoms to monitor for that would warrant a return to the emergency department. Discussed the plan with the patient, they demonstrate verbal understanding and agreement with our assessment and plan at this time. The documentation in this chart was dictated using Son[employer] dictation software. Please excuse any dictation errors. FINDINGS: VISUALIZED LUNG BASES: No nodules nor pleural effusions evident. ABDOMEN: There is no ascites. LIVER: There are no focal hepatic lesions evident. No dilated intrahepatic ducts. GALLBLADDER/BILIARY: No obvious gallbladder pathology. CBD is not dilated. PANCREAS: No evidence of pancreatic mass nor dilatation of the pancreatic duct. SPLEEN: Spleen is not enlarged. No obvious intrasplenic lesions. Splenic and portal veins are patent. ADRENALS: There are no significant adrenal masses. KIDNEYS:z there is a small benign cortical cyst in the posterior cortex of the right kidney measuring 1 cm. No further workup of this finding recommended. There are no other focal findings in the kidneys. No solid lesions. No calculi. No hydronephrosis nor hydroureter nor obvious abnormality in the urinary bladder.. ABDOMINAL AORTA: Abdominal aorta is not enlarged. LYMPH NODES:There is no retroperitoneal nor paraaortic adenopathy. ABDOMINAL WALL: No evidence of significant anterior abdominal wall nor inguinal hernia. GI: There is no evidence of bowel obstruction, free air, nor abscess. No obvious colitis pattern, given the history here. PELVIS: GI: No evidence of appendicitis.Redundant sigmoid. There may be a single diverticulum in the sigmoid adjacent to the fundus of the uterus. There appears to be an adjacent fibroid in the left side of the fundus of the uterus which measures approximately 1.5 x 1.5 cm LYMPH NODES: There is no intrapelvic nor inguinal adenopathy. REPRODUCTIVE: Uterus and adnexal regions appear unremarkable. There is a tiny amount of fluid in the cul-de-sac. Probably female physiologic. There is a uterine fibroid in the left side of the fundus which measures approximately 1.5 x 1.5 cm no abnormal adnexal masses. URINARY BLADDER: No calculi nor obvious masses evident OSSEOUS: No fractures and no significant osseous lesions. IMPRESSION: 1. No evidence of appendicitis. 2. There is a 1.5 x 1.5 cm finding in the left side of the uterine fundus which is probably a fibroid. There is a tiny amount of fluid in the cul-de-sac which is probably female physiologic. There are no obvious abnormal adnexal masses. 3. Possible few diverticuli in the sigmoid. No evidence of obvious acute diverticulitis. 4. Correlation with blood work recommended. Quality:[facility] Health Related Social Needs: No Data to Display [facility] All Active Problems (Updated 09/30/24 @ 17:13 by Tres Shah DO) Hemorrhoid (Acute) Acute GI bleeding (Acute) Lesion of uterus (Acute) Nausea (Acute) Elevated blood pressure reading without diagnosis of hypertension (Acute) Right shoulder pain (Acute) Non-cardiac chest pain (Acute) Skin sensation disturbance (Acute) Polyneuropathy (Acute) Developmental academic disorder (Acute) OCD (obsessive compulsive disorder) (Acute) Phobic disorder (Acute) Goiter (Acute) Anxiety (Chronic) Major depressive disorder, recurrent episode, moderate (Acute) Hypothyroidism (Chronic) Medical History Palpitations H/O iron deficiency anemia Tonsillar calculus Ear itching Fatigue Sensory disturbance Vertigo Jaren's thyroiditis Obesity History of anemia Vitamin D deficiency Iron deficiency Scapulalgia Constipation Dry skin Hypocalcemia Premenstrual symptom Myalgia Learning difficulty Dermatitis of both ear canals PTSD (post-traumatic stress disorder) Per Patient: Dx High School Generalized anxiety disorder Per Patient: Dx high school Surgical History Hx of section Family History Mother Alcohol use disorder Depression Father , suddenly at 66 from massive heart attack Anxiety Heart disease Hypertension Depression Heart murmur Other Jaren's thyroiditis Hyperlipidemia Osteoporosis Stroke Social History Smoking/Tobacco Use Status: Never Second Hand Exposure: Yes (As a child) Smoking risk assessment performed?: Yes Alcohol Intake: current Alcohol Intake frequency: holidays/special occasions only Drug use: Never Adopted: No Caregiver/Support person: No Foster care: Yes Household members: spouse and children Housing: house Number of Children: 1 Communication Needs: None Education Level: college Do you need help understanding health information?: Never current occupation: works at [employer] in [employer] Pets and animals: Yes (2 Cats, 1 Dog) Pets and animals: cat(s) and dog(s) Sexually active: Yes Do you think of yourself as: straight/heterosexual Current gender identity: female What is your relationship status?: How often do you talk on the phone with friends or family?: never How often do you get together with friends or relatives?: never Do you belong to any clubs or organized social groups?: no Panel score (0-1 are the most socially isolated patients): 1 What type of physical activity do you participate in: walking Duration: 15-30 minutes/day Frequency: 1-2 times per week Special maira needs: No Seatbelt use: always Helmet use: Yes Drive intox or ride w/intox boom truck driver: No Do you feel safe at home: Yes Do you feel safe in your relationship?: Yes Female Reproductive History Menstrual Age of Menarche: 15 Duration of menses: 6-7 days control method: condoms History History 1 Para Hx # Term Pregnancies 1 Multiple births Hx # Pregnancies Ectopic pregnancies AB induced Hx Number of Living Children AB spontaneous Past Pregnancies Del. Date GA/Weeks # Preg Succ Route Wgt Sex Labor Lgth Anesthesia Location [facility] 02/07/17 40 Yes 3855.535 g Female [facility] Delivery Date: 02/07/17 Last Updated by: Olya Negrete C- section for failure to progess.
[2024-09-30 15:53] LABS: Abs Immature Grans 0.03 10^3/uL (0.0-0.06); Absolute Basophil Count 0.04 10^3/uL (0.0-0.2); Absolute Eosinophil Count 0.07 10^3/uL (0.0-0.7); Absolute Lymphocyte Count 1.76 10^3/uL (1.2-3.4); Absolute Monocyte Count 0.52 10^3/uL (0.1-0.8); Absolute Neutrophil Count 6.39 10^3/uL (1.2-6.7); Basophils % 0.5 %; Eosinophils % 0.8 %; HCT 36.2 % (36.0-46.0); HGB 11.9 g/dL (11.2-15.7); Immature Grans % 0.3 %; MCH 28.3 pg (27.0-33.0); MCHC 32.9 % (32.0-36.0); MCV 86 fL (80-95); MPV 9.9 fL (8.0-11.0); Monocytes % 5.9 %; Neutrophils % 72.5 %; Platelet Count 278 10^3/uL (130-400); RBC 4.21 10^6/uL (3.93-5.22); RDW 12.4 % (11.7-14.6); WBC 8.81 10^3/uL (4.4-10.8)
[2024-09-30] MEDS: Normal Saline - Diluent 50 ML VIAL IJ (16:19)
[2024-09-30 16:20] LABS: PTT Activated 32.3 sec (23.6-32.8); Prothrombin Time 10.4 sec (9.1-11.1)
[2024-09-30] MEDS: Omnipaque 350 MG/ML 100 ML BTL 75 ML IJ (16:22)
[2024-09-30 16:25] VITALS: RESP 16
[2024-09-30 16:35] VITALS: BP 143/90; RESP 16; O2SAT 100
[2024-09-30 16:35] LABS: ALT 13 U/L (14-59); AST 10 U/L (15-37); Albumin 3.9 g/dL (3.4-5.0); Alkaline Phosphatase 78 U/L (46-116); Anion Gap 10.3 mmol/L (3-11); BUN 8 mg/dL (7-18); Bilirubin, Total 0.35 mg/dL (0.2-1.0); CO2 26.7 mmol/L (21.0-32.0); CREATININE 0.8 mg/dL (0.55-1.02); Chloride 107 mmol/L (98-107); Estimated GFR 97.87 (mL/min/1.73m2); Glucose 106 mg/dL (74-106); Lipase 37 U/L (<78); Potassium 3.7 mmol/L (3.5-5.1); Sodium 144 mmol/L (136-145); TSH (W/Ref FT4) 0.43 uIU/mL (0.36-3.74); Total Protein 7.9 g/dL (6.4-8.2)
[2024-09-30 16:40] LABS: Calcium 8.9 mg/dL (8.5-10.1)
[2024-09-30 16:58] LABS: Bilirubin Negative (Negative); Blood Large (Negative); Clarity Clear (Clear); Glucose Negative (Negative); Ketones Negative (Negative); Leukocyte Esterase Negative (Negative); Nitrite Negative (Negative); Urobilinogen 0.2 mg/dL (Up to 0.2); pH 6.5 (5-8)
[2024-09-30 17:07] LABS: Bacteria Negative HPF (Negative); C & S Indicated? No; Crystals Negative HPF (Negative); Epithelial Cells Many HPF (Negative); Mucus Negative (Negative); RBC 20-50 HPF (0-2); WBC Negative HPF (0-5)
[2024-09-30 17:31] VITALS: BP 143/90; PULSE 106; RESP 16; O2SAT 100
--- NOTE | 2024-10-01 11:23 | NUR.NOTE ---
Faxed Prescription Renewal to Primary Care Provider, Gricelda Doty
--- NOTE | 2024-10-05 10:56 | NUR.NOTE ---
pt called with questions regarding surgery referral and the fact they call 'too soon', concern that something must be wrong, reassured that notes don't show emergent condition.
== END 2024-09-30 17:37 | disposition home or self-care (01) ==
PROVIDERS: Emergency Provider Student in an Organized Health Care Education/Training Program; PCP Nurse Practitioner Family
DX: R10.32 Left lower quadrant pain (principal); K92.2 Gastrointestinal hemorrhage, unspecified; D25.9 Leiomyoma of uterus, unspecified; K64.4 Residual hemorrhoidal skin tags; F41.9 Anxiety disorder, unspecified; E03.9 Hypothyroidism, unspecified
CPT/HCPCS: 36415; 80053; 81025; 83690; 99285; 74177; 81003; 81015; 84443; 85025; 85610; 85730; 99284; J3490

== ENCOUNTER 2024-10-21 14:54 | Outpatient (REF) | payer BC, SELFPAY ==
[2024-10-21 15:32] LABS: HCT 38.2 % (36.0-46.0); HGB 12.3 g/dL (11.2-15.7); MCH 28.2 pg (27.0-33.0); MCHC 32.2 % (32.0-36.0); MCV 88 fL (80-95); MPV 11.1 fL (8.0-11.0); Platelet Count 311 10^3/uL (130-400); RBC 4.36 10^6/uL (3.93-5.22); RDW 12.7 % (11.7-14.6); RDW-SD 40.9 fL; WBC 8.17 10^3/uL (4.4-10.8)
[2024-10-21 15:34] LABS: Bacteria Moderate HPF (Negative); C & S Indicated? No; Casts Negative LPF (Negative); Crystals Negative HPF (Negative); Epithelial Cells Many HPF (Negative); Mucus Negative (Negative); Other Cells Negative (Negative); RBC Negative HPF (0-2)
[2024-10-21 16:11] LABS: FREE T4 1.04 ng/dL (0.76-1.46); Ferritin 19 ng/mL (8-252); TSH 1.49 uIU/mL (0.36-3.74)
[2024-10-21 16:24] LABS: Iron 45 ug/dL (50-170); Total Iron Binding Capacity 332 ug/dL (250-450); Transferrin Sat 14 % (15-50)
== END 2024-10-21 14:55 | disposition home or self-care (01) ==
LOC: NCHCN 14:54
PROVIDERS: PCP Nurse Practitioner Family; Visit Provider Nurse Practitioner Family
DX: R31.29 Other microscopic hematuria (principal); D50.9 Iron deficiency anemia, unspecified; E06.3 Autoimmune thyroiditis
CPT/HCPCS: 85027; 81015; 82728; 83540; 83550; 84439; 84443

== ENCOUNTER 2024-11-27 11:10 | Outpatient (REF) | payer BC, SELFPAY ==
[2024-11-27 15:01] LABS: Iron 26 ug/dL (50-170); Total Iron Binding Capacity 305 ug/dL (250-450); Transferrin Sat 9 % (15-50)
[2024-11-27 15:15] LABS: Ferritin 26 ng/mL (8-252)
== END 2024-11-27 11:11 | disposition home or self-care (01) ==
LOC: NCHCN 11:10
PROVIDERS: PCP Nurse Practitioner Family; Visit Provider Nurse Practitioner Family
DX: E61.1 Iron deficiency (principal)
CPT/HCPCS: 82728; 83540; 83550

== ENCOUNTER 2024-12-29 01:37 | Outpatient (CLI) | payer BC, SELFPAY ==
[2024-12-29 17:47] LABS: Iron 27 ug/dL (50-170); Total Iron Binding Capacity 339 ug/dL (250-450); Transferrin Sat 8 % (15-50)
[2024-12-29 18:01] LABS: Ferritin 25 ng/mL (8-252)
== END 2024-12-29 01:38 | disposition home or self-care (01) ==
LOC: LBO 01:38
PROVIDERS: PCP Nurse Practitioner Family; Visit Provider Nurse Practitioner Family
DX: E61.1 Iron deficiency (principal)
CPT/HCPCS: 36415; 82728; 83540; 83550

== ENCOUNTER 2025-02-09 12:11 | Outpatient (CLI) | payer OTHER, SELFPAY ==
[2025-02-09 14:55] LABS: Iron 80 ug/dL (50-170); Total Iron Binding Capacity 318 ug/dL (250-450); Transferrin Sat 25 % (15-50)
[2025-02-09 15:06] LABS: Ferritin 23 ng/mL (8-252)
[2025-02-09 21:09] LABS: Vitamin B12 385 pg/mL (193-986); Vitamin D 25 Total 22 ng/mL (30-100)
[2025-02-09 21:12] LABS: Folate > 20.0 ng/mL (8.6-20.0)
== END 2025-02-09 12:12 | disposition home or self-care (01) ==
LOC: LBO 12:12
PROVIDERS: PCP Nurse Practitioner Family; Visit Provider Nurse Practitioner Family
DX: D50.9 Iron deficiency anemia, unspecified (principal); R53.83 Other fatigue
CPT/HCPCS: 36415; 82306; 82607; 82728; 82746; 83540; 83550; 84443

== ENCOUNTER 2025-03-09 02:40 | Outpatient (CLI) | payer OTHER, SELFPAY ==
[2025-03-09 11:12] LABS: TSH (W/Ref FT4) 2.19 uIU/mL (0.36-3.74)
[2025-03-10 10:28] LABS: Tissue Transglutaminase IgA <4.0 CU (<20.0)
== END 2025-03-09 02:41 | disposition home or self-care (01) ==
PROVIDERS: PCP Nurse Practitioner Family; Visit Provider Nurse Practitioner Family
DX: E06.3 Autoimmune thyroiditis (principal); R19.4 Change in bowel habit; R53.1 Weakness
CPT/HCPCS: 36415; 82533; 84443

== ENCOUNTER 2025-05-24 07:39 | Day surgery (SDC) | payer OTHER, SELFPAY ==
--- NOTE | 2025-05-23 17:09 | W.PM.DSUDISC ---
Date of service: 05/24/25 Discharge Plan Disposition Patient Disposition: Home Condition: Good Discharge Details Reason For Visit: colonoscopy Attending Provider: Luigi Cochran Primary Care Provider: Gricelda Doty Home Meds and New Rx's Prescriptions: Continued levothyroxine 125 mcg tablet 125 mcg PO DAILY Qty: 30 3RF Patient Comments: using generic since Jul cholecalciferol (vitamin D3) 25 mcg (1,000 unit) capsule 25 mcg PO .every other day ferrous gluconate 18 mg iron capsule 18 mg PO DAILY ondansetron 4 mg tablet,disintegrating 4 mg PO Q8H PRN (Reason: nausea and vomiting) Qty: 3 0RF Rx Instructions: Take 1 tablet prior to starting her bowel prep. Then repeat as needed up to every 8 hours if needed for nausea Fiber Supplement (inulin) 2 gram tablet,chewable 1 tab PO DAILY Discontinued bisacodyl [Dulcolax (bisacodyl)] 5 mg tablet,delayed release (DR/EC) 5 mg PO ONCE Qty: 4 0RF Rx Instructions: take per colonoscopy instructions polyethylene glycol 3350 17 gram/dose powder 238 g PO ONCE Qty: 238 0RF Rx Instructions: take per colonoscopy instructions Discharge Instructions Additional Instructions: Christina, it was great seeing you and your mom today. I hope the procedure was comfortable, and that you feel well afterwards. Everything went very smoothly. Your prep was outstanding, we could see everything totally fine. Your colonoscopy was totally normal today. I do not see any signs of any inflammation or irritation, or anything that would suggest chronic blood loss from your colon. For now, I would continue with the iron supplements that you have been using, and some of the other fiber supplement, and toileting strategies to help reduce complications from fissure and hemorrhoid disease. If you need anything, or have any questions at all, please do not hesitate to ask. Otherwise, I recommend that you resume regular screening colonoscopies (or other colon cancer screening strategies) at age 49, which would be 10 years from now. 1. If tolerated, consume a soft, low fiber diet for 1-2 days. 2[address] Do not drive, drink alcohol, operate machinery, make critical decisions, or do activities that require coordination or balance for 24 hours. 3. Because air was put into your colon during the procedure, expelling air from your rectum (passing gas or farting) is normal. 4. You may not have a bowel movement for 1-3 days because of the colonoscopy prep. This is normal. 5. Go directly to the emergency room if you notice any of the following: Develop chills (warm to touch), or if you have a thermometer and your temperature is above 101 Difficulty breathing or difficultly swallowing Persistent vomiting Severe abdominal pain, other than gas cramps Severe chest pain Black, tarry stools Any bleeding ? exceeding one tablespoon 6. Call your physician if the site where your intravenous was started becomes red, swollen, painful, and warm to touch. 7. Your physician has reviewed your pre-procedure medications. Please continue to take those medications as previously ordered. You will be given specific information/education regarding any changes to your medications before leaving. Activity:: Activity as Tolerated Diet:: As Tolerated Discharge Orders Discharge Orders: Discharge Order (Routine); Ordered 05/23/25 Ordered By: Luigi Cochran DS: Diagnosis Discharge Diagnosis (1) Chronic iron deficiency anemia: Status: Acute Asessment and Plan: Normal colonoscopy
--- NOTE | 2025-05-23 17:11 | W.COLOREPORT ---
Date of service: 05/24/25 Time of Service: 09:50 Colonoscopy Report Date of procedure: 05/24/25 Pre-op diagnosis general: Anemia Post-op diagnosis procedure note: other (Normal colonoscopy) Procedure: Colonoscopy Surgeon: Luigi Cochran Anesthesia Type: General:No Airway Estimated blood loss (mL): 0 Pathology: none sent Complications: None Disposition: same day Indications: Christina is a 39 year old woman with chronic anemia. Prep: Miralax/Dulcolax Procedure Start Time: 09:28 Procedure End Time: 09:41 Retraction Time: 7 Findings: Normal colonoscopy Procedure Description: After the induction of anesthesia, and with Christina in left lateral decubitus position, I began by performing an external anorectal exam.? Perineum and skin were normal, as was the anal verge.? I did not see any signs of active anal fissures. Next, I performed a digital rectal exam.? I did not appreciate any abnormal findings.? Next, I advanced a colonoscope into the rectal vault.? I performed retroflexion.? This appeared normal.? Using insufflation, I then advanced the colonoscope beyond the rectal folds and into the sigmoid colon before advancing towards the cecum.? The quality of the prep was outstanding.? The scope was noted to be in the cecum by identification of the ileocecal valve and appendiceal orifice.? I then began withdrawing the colonoscope using repeated irrigation as necessary for full evaluation of the colonic mucosa. ?All of the mucosa was normal and healthy appearing. There is no evidence of any irritation or inflammation. I saw no signs of ulcerative colitis or Crohn's disease. There were no signs of any vascular malformations. Once the scope was withdrawn to the level of the rectum, great care was taken to examine portions of the rectal folds.? Again, all of this appeared normal. Finally, the scope was withdrawn and the patient was brought to the same-day surgery recovery unit as the anesthetic wore off. ?The findings and instructions were shared with the patient prior to discharge. [place] Bowel Prep [place] Bowel Prep Right Colon: 3 Left Colon: 3 Transverse Colon: 3 Total Score: 9
[2025-05-24 08:01] VITALS: BP 150/86; PULSE 110; RESP 16; TEMP 35.6; O2SAT 100
[2025-05-24] MEDS: Lactated Ringers 1,000 ML 80 ML IV (08:35)
--- NOTE | 2025-05-24 09:05 | W.ANESPRE ---
General Info Date of Service Date Performed: 05/24/25 Height: 4 ft 11 in Weight: 73.936 kg Body Mass Index (BMI): 32.9 Surgical Procedure: Operation Date: 05/24/25 09:05 Proposed Procedure Side Surgeon hardik Cochran MD Meds Allergies and Home Medications Allergies Allergy/AdvReac Type Severity Reaction Status Date / Time No Known Allergies Allergy Verified 05/24/25 07:58 Home Medication ?Medication ?Instructions ?Recorded levothyroxine 125 mcg tablet 125 mcg PO DAILY #30 tabs 08/14/24 cholecalciferol (vitamin D3) 25 25 mcg PO .every other day 05/13/25 mcg (1,000 unit) capsule ferrous gluconate 18 mg iron 18 mg PO DAILY 05/13/25 capsule ondansetron 4 mg disintegrating 4 mg PO Q8H PRN nausea and 05/13/25 tablet vomiting #3 tabs inulin-sorbitol 2 gram chewable 1 tab PO DAILY 05/20/25 tablet (Fiber Supplement (inulin)) Current Visit Medications: Current Medications Generic Name Dose Route Start Last Admin Trade Name Freq PRN Reason Stop Dose Admin Ringer's Solution 1,000 mls @ 80 mls/hr 05/24/25 06:00 05/24/25 08:35 IV 05/24/25 23:59 80 mls/hr INFUSION KIMBERLY Administration IV Miscellaneous Supplies 1 each 05/24/25 06:00 Iv Access IV 05/24/25 23:59 DIRECTED KIMBERLY Ondansetron HCl 4 mg 05/23/25 17:12 Ondansetron 4 Mg/2 Ml Vial IVP 06/22/25 17:11 Q4H PRN PRN Nausea / Vomiting Sodium Chloride 0 ml 05/24/25 06:00 Normal Saline Flush 10 Ml Syr IV 05/24/25 23:59 PRN PRN Sodium Chloride 0 ml 05/24/25 06:00 Normal Saline 10 Ml Vial IJ 05/24/25 23:59 DIRECTED PRN Sterile Water 0 ml 05/24/25 06:00 Water,Injection,Sterile 10 Ml Vial IJ 05/24/25 23:59 DIRECTED PRN PFSH Active Problems Active Problems: Problem Status Onset Code Chronic iron deficiency anemia Acute 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 K60.1 Uterine fibroid Acute D25.9 Elevated blood pressure reading without diagnosis of hypertension Acute R03.0 Right shoulder pain Acute M25.511 Non-cardiac chest pain Acute R07.89 Skin sensation disturbance Acute R20.9 Polyneuropathy Acute 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 F81.9 OCD (obsessive compulsive disorder) Acute F42.9 Phobic disorder Acute F40.9 Goiter Acute E04.9 Anxiety Chronic F41.9 Hypothyroidism Chronic E03.9 Major depressive disorder, recurrent episode, moderate Acute F33.1 Medical History Medical History Palpitations Has had this worked up by cardiology H/O iron deficiency anemia Tonsillar calculus Ear itching Fatigue Sensory disturbance Vertigo Jaren's thyroiditis Pt .states she is medically managed Obesity History of anemia Vitamin D deficiency Iron deficiency Scapulalgia Constipation Dry skin Hypocalcemia Myalgia Learning difficulty Dermatitis of both ear canals PTSD (post-traumatic stress disorder) Per Patient: Dx High School. Pt. states losing control is a fear Generalized anxiety disorder Per Patient: Dx high school Surgical History Surgical History Hx of section Tobacco Smoking/Tobacco Use Status: Never Passive smoking exposure: Yes Second hand exposure: Yes (As a child) Alcohol Alcohol Intake: current Alcohol intake frequency: holidays/special occasions only Substance Use Substance use: Never Substance use type: does not use and marijuana Prental History History 1 Para Hx # Term Pregnancies 1 Multiple births Hx # Pregnancies Ectopic pregnancies AB induced Hx Number of Living Children AB spontaneous Past Pregnancies Del. Date GA/Weeks # Preg Succ Route Wgt Sex Labor Lgth Anesthesia Location [facility] 02/07/17 40 Yes 3855.535 g Female [facility] Delivery Date: 02/07/17 Last Updated by: Olya Negrete C- section for failure to progess. Vital Signs and Lab Results Vital Signs Most Recent Vital Signs in EMR: Most Recent Vital Signs Temp Pulse Resp BP Pulse Ox 35.6 C L 110 H 16 150/86 H 100 05/24/25 08:01 05/24/25 08:01 05/24/25 08:01 05/24/25 08:01 05/24/25 08:01 Anesthesia Assessment and Plan Anesthesia History Personal History: No History of Anesthesia Complications Family History: No Family History of Anesthesia Complications Exercise Tolerance Exercise Tolerance: Metabolic Equivalents>4 Pertinent Negatives Pertinent Negatives: No Symptoms of GERD, No Major Cardiovascular Symptoms or Complaints and No Major Pulmonary Symptoms or Complaints Cardiac & Pulmonary Exam Cardiac Exam: Normal S1/S2 Heart Sounds Pulmonary Exam: Clear Bilateral Breath Sounds Implantable Cardiac Device Does patient have a Pacemaker or an ICD?: No Airway Exam Known Difficult Airway: No Mallampati Class: 3 Mouth Opening: Normal (> 3cm) Thyromental Distance: Greater than 3 cm Neck Range of Motion: Full ROM Neck Circumference: Normal Teeth Condition: Normal Dentition ASA Classification ASA Score: ASA 2 Emergency Case?: No NPO Status NPO Status: NPO Clears >2 hours, Solids >8 hours Status Status: Negative HCG Anesthesia Plan Resuscitation Status: Full Code Anesthesia Technique: General Anesthesia Airway Planned: Natural Airway Monitors Used: Standard Monitors Preoperative Comments:: Very anxious about anesthesia. 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
[2025-05-24 09:06] VITALS: BMI 32.9
[2025-05-24 09:46] VITALS: BP 124/74; PULSE 79; RESP 18; TEMP 36.3; O2SAT 99
[2025-05-24 10:10] VITALS: BP 123/75; PULSE 76; RESP 16; TEMP 36.3; O2SAT 100
--- NOTE | 2025-05-24 10:17 | W.ANESPOSTOP ---
Postoperative Evaluation Date, Time and Location Date Performed: 05/24/25 Time Performed: 09:46 Patient Location: Day Surgery Unit Vital Signs Most Recent Imported Vital Signs: Most Recent Vital Signs Temp Pulse Resp BP Pulse Ox 36.3 C L 79 18 124/74 99 05/24/25 09:46 05/24/25 09:46 05/24/25 09:46 05/24/25 09:46 05/24/25 09:46 Pain Score Most Recent Pain Score: Most Recent Pain Score Pain Level 0 05/24/25 09:46 Assessment Mental Status: Awake (Alert & Oriented to Patient Baseline) Airway and Respiratory Function: Patent airway with normal (patient baseline) respiratory exam Cardiovascular Function: Hemodynamically Stable Hydration Status: Adequately Hydrated Nausea & Vomiting: No Nausea or Vomiting Pain: Pt. Denies Any Pain Peripheral Nerve Block: Patient did not receive a nerve block
== END 2025-05-24 10:40 | disposition home or self-care (01) ==
LOC: SUR 07:40
PROVIDERS: PCP Nurse Practitioner Family; Visit Provider Surgery
PROC: 0DJD8ZZ Inspection of Lower Intestinal Tract, Via Natural or Artificial Opening Endoscopic (ICD-10-PCS; CPT 45378; principal; 2025-05-24 09:00)
DX: D50.9 Iron deficiency anemia, unspecified (principal); K60.1 Chronic anal fissure
CPT/HCPCS: 45378; J2003; J2250; J2405; J2704

== ENCOUNTER 2025-07-12 15:55 | Outpatient (REF) | payer OTHER, SELFPAY ==
[2025-07-12 21:26] LABS: Abs Immature Grans 0.04 10^3/uL (0.0-0.06); HCT 37.9 % (36.0-46.0); HGB 12.6 g/dL (11.2-15.7); Immature Grans % 0.5 %; MCH 28.7 pg (27.0-33.0); MCHC 33.2 % (32.0-36.0); MCV 86 fL (80-95); MPV 10.7 fL (8.0-11.0); Platelet Count 295 10^3/uL (130-400); RBC 4.39 10^6/uL (3.93-5.22); RDW 12.1 % (11.7-14.6); RDW-SD 38.2 fL; WBC 8.76 10^3/uL (4.4-10.8)
[2025-07-12 21:38] LABS: HCG Qual (Serum) Negative
[2025-07-12 21:56] LABS: ALT 15 U/L (14-59); AST 15 U/L (15-37); Albumin 4.2 g/dL (3.4-5.0); Alkaline Phosphatase 65 U/L (46-116); Anion Gap 12.6 mmol/L (3-11); BUN 12 mg/dL (7-18); Bilirubin, Total 0.5 mg/dL (0.2-1.0); CO2 25.4 mmol/L (21.0-32.0); Calcium 9.1 mg/dL (8.5-10.1); Chloride 104 mmol/L (98-107); Estimated GFR 97.26 (mL/min/1.73m2); Glucose 92 mg/dL (74-106); Potassium 3.9 mmol/L (3.5-5.1); Sodium 142 mmol/L (136-145); TSH (W/Ref FT4) 2.32 uIU/mL (0.36-3.74); Total Protein 7.7 g/dL (6.4-8.2)
[2025-07-14 10:41] LABS: Lyme Ab w Rflx to Lyme Confirm Negative (Negative)
[2025-07-15 21:08] LABS: B. miyamotoi PCR Negative (Negative); Babesia divergens/MO-1 Negative (Negative); Ehrlichia muris eauclairensis Negative (Negative)
== END 2025-07-12 15:56 | disposition home or self-care (01) ==
LOC: NCHCN 15:55
PROVIDERS: PCP Nurse Practitioner Family; Visit Provider Family Medicine
DX: R53.83 Other fatigue (principal)
CPT/HCPCS: 80053; 87798; 84443; 84703; 85025; 86618

== ENCOUNTER 2025-07-20 14:23 | Outpatient (REF) | payer OTHER, SELFPAY ==
[2025-07-20 15:35] LABS: Abs Immature Grans 0.04 10^3/uL (0.0-0.06); HCT 40.1 % (36.0-46.0); HGB 13.2 g/dL (11.2-15.7); Immature Grans % 0.6 %; MCH 29.2 pg (27.0-33.0); MCHC 32.9 % (32.0-36.0); MCV 89 fL (80-95); MPV 11.3 fL (8.0-11.0); Platelet Count 312 10^3/uL (130-400); RBC 4.52 10^6/uL (3.93-5.22); RDW 12.3 % (11.7-14.6); RDW-SD 40.2 fL; WBC 7.11 10^3/uL (4.4-10.8)
[2025-07-20 15:54] LABS: ALT 15 U/L (14-59); AST 14 U/L (15-37); Albumin 4.5 g/dL (3.4-5.0); Alkaline Phosphatase 70 U/L (46-116); Anion Gap 9.8 mmol/L (3-11); BUN 14 mg/dL (7-18); Bilirubin, Total 0.6 mg/dL (0.2-1.0); CO2 28.2 mmol/L (21.0-32.0); Calcium 9.3 mg/dL (8.5-10.1); Chloride 104 mmol/L (98-107); Estimated GFR 97.26 (mL/min/1.73m2); Glucose 93 mg/dL (74-106); Potassium 4.2 mmol/L (3.5-5.1); Sodium 142 mmol/L (136-145); Total Protein 7.8 g/dL (6.4-8.2)
[2025-07-21 12:02] LABS: Iron 57 ug/dL (50-170); Total Iron Binding Capacity 304 ug/dL (250-450); Transferrin Sat 19 % (15-50)
[2025-07-21 12:18] LABS: Ferritin 23 ng/mL (8-252)
[2025-07-21 12:47] LABS: Ro60 Ab, IgG <7.0 CU (<20.0); SS-A/Ro, IgG <2.3 CU (<20.0); SS-B (La) Ab, IgG <3.3 CU (<20.0)
== END 2025-07-20 14:24 | disposition home or self-care (01) ==
LOC: NCHCN 14:23
PROVIDERS: PCP Nurse Practitioner Family; Visit Provider Nurse Practitioner Family
DX: R42 Dizziness and giddiness (principal)
CPT/HCPCS: 80053; 82728; 83540; 83550; 85025; 86038; 86235

== ENCOUNTER 2025-09-20 01:30 | Outpatient (CLI) | payer OTHER, SELFPAY ==
[2025-09-20 09:13] LABS: TSH 0.76 uIU/mL (0.55-4.78)
== END 2025-09-20 01:31 | disposition home or self-care (01) ==
LOC: LBO 01:30
PROVIDERS: PCP Nurse Practitioner Family; Visit Provider Internal Medicine Endocrinology, Diabetes & Metabolism
DX: E03.9 Hypothyroidism, unspecified (principal); E06.3 Autoimmune thyroiditis
CPT/HCPCS: 36415; 84439; 84443